=== PATIENT | male | born 1990 | race Caucasian/White ===

== ENCOUNTER 2019-10-14 01:09 | Inpatient (IN) | payer BC ==
--- NOTE | 2019-10-14 01:21 | EDM.PDOC ---
ED HPI GENERAL MEDICAL PROBLEM - General Chief Complaint: Drug or Alcohol Abuse Stated Complaint: [facility] Time Seen by Provider: 10/14/19 01:09 Source of Information: Reports: EMS, Police History Limitations: Reports: Other (Unresponsive) - History of Present Illness INITIAL COMMENTS - FREE TEXT/NARRATIVE: Mr. Ordonez is a 29-year-old man brought to the ED by paramedics after the police were called for the patient being found in a vehicle unresponsive. The police state that they contacted the patient's roommate, who told him that the patient had been drinking [place] Bocan[place] all day, then left their apartment at 18: 30. The person who called the police told him that they had seen the patient in his vehicle, apparently sleeping with the car running, around 20:30. When he was still there early this morning, they called the police. The police found the patient unresponsive in his vehicle with the engine running. They broke out a window in order to access him. They gave 3 doses of intranasal Narcan 4 mg each with minimal improvement in his cognition. EMS subsequently placed an IV and gave 2 additional milligrams IV. Upon arrival to the ED, the patient is tachycardic but otherwise hemodynamically stable. He is oxygenating at 97% on room air, but does not respond to noxious stimuli. Because the patient has not been to this ED before, we have no medical records on the patient, and therefore do not know of any past medical history. - Related Data Allergies Allergy/AdvReac Type Severity Reaction Status Date / Time No Known Allergies Allergy Verified 10/14/19 02:59 Home Meds: Home Meds . [Unable to Verify Home Med List] 10/14/19 [History] Past Medical History Endocrine/Metabolic History: Reports: Obesity/BMI 30+ ED ROS GENERAL - Review of Systems Review Of Systems: Unable To Obtain Reason Not Obtained: Patient unresponsive - Physical Exam Exam: See Below Exam Limited By: Physical Impairment General Appearance: WD/WN, No Apparent Distress, Obtunded Eye Exam: Bilateral Eye: Other (Pupils approx 8 mm diameter, sluggish, although the patient does try to squeeze his eyes shit to light) Ears: Normal External Exam, Normal Canal, Normal TMs Nose: Normal Inspection, Normal Mucosa, No Blood Throat/Mouth: Normal Inspection, Normal Lips, No Airway Compromise Head Exam: Atraumatic, Normocephalic Neck: Normal Inspection, Supple, Full Range of Motion Respiratory/Chest: No Respiratory Distress, Lungs Clear, Normal Breath Sounds, No Accessory Muscle Use Cardiovascular: Normal Peripheral Pulses, No Edema, No Gallop, No JVD, No Murmur , No Rub, Tachycardia (regular) GI/Abdominal: Normal Bowel Sounds, Soft, Non-Tender, No Organomegaly, No Distention, No Abnormal Bruit, No Mass (Male) Exam: Deferred Rectal (Males) Exam: Deferred Neuro Exam (Abbreviated): Unresponsive Back Exam: Normal Inspection, Full Range of Motion, NT Extremities: Normal Inspection, Normal Range of Motion, No Pedal Edema, Normal Capillary Refill Skin Exam: Warm, Dry, Intact, Normal Color, No Rash EKG INTERPRETATION EKG Date: 10/14/19 Time: 01:23 Rhythm: Other (Sinus tachycardia) Rate (Beats/Min): 111 [place]: Normal P-Wave: Present QRS: Normal ST-T: Depressed (ST depression in II and V3-V5, but no T wave inversions) QT: Prolonged (QTc 507 ms) Comparison: NA - No Prior EKG Course - Vital Signs Last Recorded V/S: Last Vital Signs Temp 36.1 C 10/14/19 01:13 Pulse 106 H 10/14/19 03:46 Resp 11 L 10/14/19 03:46 BP 98/55 L 10/14/19 03:46 Pulse Ox 91 L 10/14/19 03:46 - Orders/Labs/Meds Orders: Active Orders 24 hr Category Date Time Status EKG Documentation Completion [RC] STAT Care 10/14/19 01:18 Active Gastrointestinal Tube Mgmt [RC] ASDIRECTED Care 10/14/19 03:14 Active Chest 1V-Tube Placement Chk NC [CR] Stat Exams 10/14/19 04:25 Taken Head wo Cont [CT] Stat Exams 10/14/19 01:17 Taken CULTURE BLOOD [BC] Stat Lab 10/14/19 06:05 Received CULTURE BLOOD [BC] Stat Lab 10/14/19 06:25 Received Norepinephrine [Levophed] 4 mg Med 10/14/19 05:15 Active Dextrose 5% in Water 246 ml IV TITRATE Octreotide [SandoSTATIN] 500 mcg Med 10/14/19 02:00 Active Sodium Chloride 0.9% [Normal Saline] 499 ml IV Q10H Pantoprazole [ProTONIX IV] 80 mg Med 10/14/19 02:00 Active Sodium Chloride 0.9% [Normal Saline] 100 ml IV Q10H Blood Culture x2 Reflex Set [OM.PC] Stat Oth 10/14/19 05:57 Ordered Nasogastric Orogastric Tube Insertion [OM.PC] Routine Oth 10/14/19 03:13 Ordered Medication Orders Pantoprazole Sodium 80 mg/ (Sodium Chloride) 100 mls @ 10 mls/hr IV Q10H ASHISH Last Admin: 10/14/19 02:01 Dose: 8 mg/hr, 10 mls/hr Octreotide Acetate 500 mcg/ (Sodium Chloride) 500 mls @ 50 mls/hr IV Q10H ASHISH Last Admin: 10/14/19 02:25 Dose: 50 mcg/hr, 50 mls/hr Norepinephrine Bitartrate 4 mg (/ Dextrose/Water) 250 mls @ 75 mls/hr IV TITRATE ASHISH; Protocol Labs: Laboratory Tests 10/14/19 10/14/19 10/14/19 Range/Units 01:45 01:45 01:45 WBC 33.45 H (4.23-9.07) K/mm3 RBC 5.42 (4.63-6.08) M/mm3 Hgb 15.9 (13.7-17.5) gm/dl Hct 49.9 (40.1-51.0) % MCV 92.1 (79.0-92.2) fl MCH 29.3 (25.7-32.2) pg MCHC 31.9 L (32.2-35.5) g/dl RDW Std Deviation 45.2 H (35.1-43.9) fL Plt Count 178 (163-337) K/mm3 MPV 10.2 (9.4-12.3) fl Neutrophils % (Manual) 91 H (40-60) % Band Neutrophils % 0 (0-10) % Lymphocytes % (Manual) 6 L (20-40) % Atypical Lymphs % 0 % Monocytes % (Manual) 2 (2-10) % Eosinophils % (Manual) 1 (0.8-7.0) % Basophils % (Manual) 0 L (0.2-1.2) Platelet Estimate Adequate RBC Morph Comment Normal Sodium (136-145) mEq/L Potassium (3.5-5.1) mEq/L Chloride (98-107) mEq/L Carbon Dioxide (21-32) mEq/L Anion Gap (5-15) BUN (7-18) mg/dL Creatinine (0.7-1.3) mg/dL Est Cr Clr Drug Dosing Estimated GFR (MDRD) (>60) mL/min BUN/Creatinine Ratio (14-18) Glucose (74-106) mg/dL Serum Osmolality (280-300) mosm/kg Lactic Acid (0.4-2.0) mmol/L Calcium (8.5-10.1) mg/dL Magnesium 2.3 (1.8-2.4) mg/dl Total Bilirubin (0.2-1.0) mg/dL AST (15-37) U/L ALT (16-63) U/L Alkaline Phosphatase (46-116) U/L Total Protein (6.4-8.2) g/dl Albumin (3.4-5.0) g/dl Globulin gm/dL Albumin/Globulin Ratio (1-2) TSH 3rd Generation (0.358-3.74) uIU/mL Salicylates 1.5 L (2.8-20) mg/dL Urine Opiates Screen (YURAXL=937) Ur Buprenorphine Scrn (CUTOFF=10) Ur Oxycodone Screen (CPQ7RZ=060) Urine Methadone Screen (KAP3AB=647) Ur Propoxyphene Screen (HLMAHT=553) Acetaminophen (10-30) ug/mL Ur Barbiturates Screen (LFSMHL=380) Ur Tricyclics Screen (QDDGUI=995) Ur Phencyclidine Scrn (CUTOFF=25) Ur Amphetamine Screen (NTKRIO=524) U Methamphetamines Scrn (UYSTES=583) U Benzodiazepines Scrn (YETAKI=834) U Cocaine Metab Screen (ZAUBVF=261) U Marijuana (THC) Screen (CUTOFF=50) Ethyl Alcohol (0.00) gm% 10/14/19 10/14/19 10/14/19 Range/Units 01:45 02:10 03:48 WBC (4.23-9.07) K/mm3 RBC (4.63-6.08) M/mm3 Hgb (13.7-17.5) gm/dl Hct (40.1-51.0) % MCV (79.0-92.2) fl MCH (25.7-32.2) pg MCHC (32.2-35.5) g/dl RDW Std Deviation (35.1-43.9) fL Plt Count (163-337) K/mm3 MPV (9.4-12.3) fl Neutrophils % (Manual) (40-60) % Band Neutrophils % (0-10) % Lymphocytes % (Manual) (20-40) % Atypical Lymphs % % Monocytes % (Manual) (2-10) % Eosinophils % (Manual) (0.8-7.0) % Basophils % (Manual) (0.2-1.2) Platelet Estimate RBC Morph Comment Sodium 145 (136-145) mEq/L Potassium 3.8 (3.5-5.1) mEq/L Chloride 109 H (98-107) mEq/L Carbon Dioxide 19 L (21-32) mEq/L Anion Gap 20.8 H (5-15) BUN 15 (7-18) mg/dL Creatinine 1.7 H (0.7-1.3) mg/dL Est Cr Clr Drug Dosing TNP Estimated GFR (MDRD) 48 (>60) mL/min BUN/Creatinine Ratio 8.8 L (14-18) Glucose 125 H (74-106) mg/dL Serum Osmolality 345 H (280-300) mosm/kg Lactic Acid 3.9 H* (0.4-2.0) mmol/L Calcium 7.8 L (8.5-10.1) mg/dL Magnesium (1.8-2.4) mg/dl Total Bilirubin 0.3 (0.2-1.0) mg/dL AST 601 H (15-37) U/L ALT 620 H (16-63) U/L Alkaline Phosphatase 69 (46-116) U/L Total Protein 6.9 (6.4-8.2) g/dl Albumin 3.7 (3.4-5.0) g/dl Globulin 3.2 gm/dL Albumin/Globulin Ratio 1.2 (1-2) TSH 3rd Generation 0.879 (0.358-3.74) uIU/mL Salicylates (2.8-20) mg/dL Urine Opiates Screen (VMQXEO=027) Ur Buprenorphine Scrn (CUTOFF=10) Ur Oxycodone Screen (HSS1WG=755) Urine Methadone Screen (SBZ1SE=367) Ur Propoxyphene Screen (EUNLLA=436) Acetaminophen 0 L (10-30) ug/mL Ur Barbiturates Screen (ANLSME=239) Ur Tricyclics Screen (XAHMVB=097) Ur Phencyclidine Scrn (CUTOFF=25) Ur Amphetamine Screen (DAIMDN=868) U Methamphetamines Scrn (IPCBZP=045) U Benzodiazepines Scrn (IEGEAG=214) U Cocaine Metab Screen (AITRBX=218) U Marijuana (THC) Screen (CUTOFF=50) Ethyl Alcohol 0.11 (0.00) gm% 10/14/19 10/14/19 Range/Units 05:27 06:25 WBC (4.23-9.07) K/mm3 RBC (4.63-6.08) M/mm3 Hgb (13.7-17.5) gm/dl Hct (40.1-51.0) % MCV (79.0-92.2) fl MCH (25.7-32.2) pg MCHC (32.2-35.5) g/dl RDW Std Deviation (35.1-43.9) fL Plt Count (163-337) K/mm3 MPV (9.4-12.3) fl Neutrophils % (Manual) (40-60) % Band Neutrophils % (0-10) % Lymphocytes % (Manual) (20-40) % Atypical Lymphs % % Monocytes % (Manual) (2-10) % Eosinophils % (Manual) (0.8-7.0) % Basophils % (Manual) (0.2-1.2) Platelet Estimate RBC Morph Comment Sodium (136-145) mEq/L Potassium (3.5-5.1) mEq/L Chloride (98-107) mEq/L Carbon Dioxide (21-32) mEq/L Anion Gap (5-15) BUN (7-18) mg/dL Creatinine (0.7-1.3) mg/dL Est Cr Clr Drug Dosing Estimated GFR (MDRD) (>60) mL/min BUN/Creatinine Ratio (14-18) Glucose (74-106) mg/dL Serum Osmolality (280-300) mosm/kg Lactic Acid 3.1 H* (0.4-2.0) mmol/L Calcium (8.5-10.1) mg/dL Magnesium (1.8-2.4) mg/dl Total Bilirubin (0.2-1.0) mg/dL AST (15-37) U/L ALT (16-63) U/L Alkaline Phosphatase (46-116) U/L Total Protein (6.4-8.2) g/dl Albumin (3.4-5.0) g/dl Globulin gm/dL Albumin/Globulin Ratio (1-2) TSH 3rd Generation (0.358-3.74) uIU/mL Salicylates (2.8-20) mg/dL Urine Opiates Screen Negative (GCBETF=769) Ur Buprenorphine Scrn Negative (CUTOFF=10) Ur Oxycodone Screen Negative (ZJZ3NP=011) Urine Methadone Screen Negative (PMT4LZ=200) Ur Propoxyphene Screen Negative (WMIMKK=913) Acetaminophen (10-30) ug/mL Ur Barbiturates Screen Negative (UPMRBK=816) Ur Tricyclics Screen Negative (CNFVGW=563) Ur Phencyclidine Scrn Negative (CUTOFF=25) Ur Amphetamine Screen Negative (NPQJOT=637) U Methamphetamines Scrn Negative (ABDXEN=528) U Benzodiazepines Scrn Negative (TQIJGA=801) U Cocaine Metab Screen Negative (PBXHPJ=394) U Marijuana (THC) Screen Negative (CUTOFF=50) Ethyl Alcohol (0.00) gm% Meds: Medications Generic Name Dose Route Start Last Admin Trade Name Freq PRN Reason Stop Dose Admin Pantoprazole Sodium 80 mg/ 100 mls @ 10 mls/hr 10/14/19 02:00 10/14/19 02:01 Sodium Chloride IV 8 mg/hr Q10H ASHISH 10 mls/hr Administration 8 MG/HR Octreotide Acetate 500 mcg/ 500 mls @ 50 mls/hr 10/14/19 02:00 10/14/19 02:25 Sodium Chloride IV 50 mcg/hr Q10H ASHISH 50 mls/hr Administration 50 MCG/HR Norepinephrine Bitartrate 4 mg 250 mls @ 75 mls/hr 10/14/19 05:15 / Dextrose/Water IV TITRATE ASHISH Protocol 20 MCG/MIN Discontinued Medications Generic Name Dose Route Start Last Admin Trade Name Freq PRN Reason Stop Dose Admin Sodium Chloride 1,000 mls @ 150 mls/hr 10/14/19 01:30 Normal Saline IV ASDIRECTED ASHISH Sodium Chloride 1,000 mls @ 999 mls/hr 10/14/19 01:52 10/14/19 01:54 Normal Saline IV 10/14/19 02:52 999 mls/hr ONETIME ONE Administration Sodium Chloride 500 mls @ 999 mls/hr 10/14/19 03:01 10/14/19 03:06 Normal Saline IV 10/14/19 03:31 999 mls/hr .BOLUS ONE Administration Norepinephrine Bitartrate 4 mg 250 mls @ 37.5 mls/hr 10/14/19 03:15 10/14/19 04:56 / Dextrose/Water IV 10 mcg/min TITRATE ASHISH 37.5 mls/hr Administration Protocol 10 MCG/MIN Sodium Chloride Confirm 10/14/19 03:09 10/14/19 04:23 Normal Saline Administered 10/14/19 03:10 Not Given Dose 100 mls @ as directed .ROUTE .STK-MED ONE Sodium Chloride Confirm 10/14/19 03:12 10/14/19 04:56 Normal Saline Administered 10/14/19 03:13 Not Given Dose 250 mls @ as directed .ROUTE .STK-MED ONE Dextrose/Water Confirm 10/14/19 03:38 10/14/19 04:55 Dextrose 5% In Water Administered 10/14/19 03:39 Not Given Dose 500 mls @ as directed .ROUTE .STK-MED ONE Sodium Chloride 500 mls @ 1,000 mls/hr 10/14/19 03:45 Normal Saline IV 10/14/19 04:14 .BOLUS ONE Sodium Chloride 1,000 mls @ 999 mls/hr 10/14/19 05:02 10/14/19 06:03 Normal Saline IV 10/14/19 06:02 999 mls/hr ONETIME ONE Administration Levofloxacin/Dextrose 750 mg/ 150 mls @ 100 mls/hr 10/14/19 05:25 10/14/19 06 :48 Premix IV 10/14/19 06:54 100 mls/hr ONETIME STA Administration Lidocaine HCl Confirm 10/14/19 04:10 10/14/19 04:27 Xylocaine 2% Jelly Administered 10/14/19 04:11 10 ml Dose Administration 10 ml .ROUTE .STK-MED ONE Lidocaine HCl 10 ml 10/14/19 04:27 Xylocaine 2% Jelly MUCMEM 10/14/19 04:28 ONETIME ONE Norepinephrine Bitartrate Confirm 10/14/19 03:09 10/14/19 04:24 Levophed Administered 10/14/19 03:10 Not Given Dose 4 mg .ROUTE .STK-MED ONE Norepinephrine Bitartrate Confirm 10/14/19 03:37 10/14/19 04:57 Levophed Administered 10/14/19 03:38 Not Given Dose 4 mg .ROUTE .STK-MED ONE Ondansetron HCl 4 mg 10/14/19 02:52 10/14/19 04:57 Zofran Odt PO 10/14/19 02:53 Not Given ONETIME ONE Ondansetron HCl 4 mg 10/14/19 02:55 10/14/19 02:56 Zofran IVPUSH 10/14/19 02:56 4 mg ONETIME ONE Administration Ondansetron HCl Confirm 10/14/19 02:53 Zofran Administered 10/14/19 02:54 Dose 4 mg .ROUTE .STK-MED ONE Pantoprazole Sodium 80 mg 10/14/19 01:46 10/14/19 02:00 Protonix Iv IVPUSH 10/14/19 01:47 80 mg BOLUS ONE Administration - Re-Assessments/Exams Free Text/Narrative Re-Assessment/Exam: 10/14/19 01:20 By the history provided by the police, the patient is most likely suffering from significant alcohol intoxication, however, in order to rule out other causes, I have ordered a CT scan of the head along with blood work and a urine drug screen. 10/14/19 01:45 Notified by Ritu LOPEZ that the patient vomited a large amount of coffee-ground appearing emesis. She Hemoccult tested it, and it returned grossly positive. The patient now appears to be more awake, yawning and looking around. 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 I have switched the patient's IV fluid to a bolus, and ordered pantoprazole 80 mg IVP followed by 8 mg/h gtt, and octreotide 50 mcg followed by 50 mcg/h gtt. 10/14/19 03:15 Notified by Nathalia LOPEZ that the patient's blood pressure suddenly dropped down to 60/27. I ordered an IV fluid bolus and Levophed at 10 mcg/min. Case discussed with Dr. Bond at 03:10. He feels that it is unlikely, given the patient's age, that his blood pressure dropped due to hemorrhage. He recommended, however, that we place an NG tube, and if there is fresh blood, then I will contact him to come in. CT of the head without contrast is read by Eliseo as "No acute intracranial process." The patient's CBC is remarkable for a WBC count substantially elevated at 33.45 , but with 0% bandemia. The remainder of his CBC is unremarkable. His CMP is remarkable for a bicarbonate depressed at 20, with an anion gap elevated at 20.8. His BUN is normal at 15, however, his Cr is elevated at 1.7. His blood glucose is elevated at 125. His AST/ALT are elevated at 601/620, respectively. The remainder of his CMP is unremarkable. His magnesium level is within normal limits at 2.3. His TSH is within normal limits at 0.879. His acetaminophen level is 0. His salicylate level is within normal limits at 1.5. His EtOH level is elevated at 0.11. Urine has not yet been collected for his urine drug screen. In order to evaluate the patient's high anion gap metabolic acidosis, I will order a lactic acid, a serum osmole, and an arterial blood gas. We already have the benefit of knowing that his salicylate level is not significantly elevated and that he is not significantly hyperglycemic. 10/14/19 05:16 Post-NG tube portable chest x-ray is read by Eliseo as: 1. No acute findings. 2. NG tube the tip of which can be seen at the GE junction. This should be advanced into the stomach The patient's lactic acid level is elevated at 3.9. His serum osmolality is 345. Notified by the filling technician that we are unable to perform ABGs at this time , due to a shortage of supplies related to COVID-19. The NG tube is being advanced. The patient has an osmolar gap of 12.86. The elevation is most likely due to his elevated alcohol level. The patient tells me that he took a single 30 mg tablet of Oxycodone to treat body aches. He states that "It's been a rough week". He states that he has not done that previously. He states that it was not in an attempt to harm himself. He denies recent illness. The etiology of the patient's hypotension is not clear. His blood pressure improved when the NG tube was initially attempted to be passed, but it has since dropped again, and I have had to increase his Levophed to 20 mcg/min. Oxycodone and alcohol may have been why he was initially unresponsive, but they should not cause hypotension. As above, he has an elevated WBC count, but no left shift whatsoever, and without recent illness, I have no reason to suspect sepsis. Nevertheless, I will order 2 sets of blood cultures, a repeat lactic acid level, and 750 mg of IV Levaquin as broad-spectrum antibiotic coverage. 10/14/19 06:04 The patient's urine drug screen is negative. 10/14/19 07:18 Repeat lactic acid is down to 3.1. Case discussed with Dr. Chan. He accepted the patient for admission to the ICU. Departure - Departure Time of Disposition: 07:19 Disposition: Admitted As Inpatient 67 Condition: Serious Clinical Impression: Hypotension, Alcohol abuse, Alcohol intoxication, Lactic acid increased - Discharge Information *PRESCRIPTION DRUG MONITORING PROGRAM REVIEWED*: Not Applicable *COPY OF PRESCRIPTION DRUG MONITORING REPORT IN PATIENT GABRIEL: Not Applicable Referrals: PCP,None [Primary Care Provider] - Sepsis Event Note - Evaluation Sepsis Screening Result: No Definite Risk - Focused Exam Vital Signs: Vital Signs Temp Pulse Pulse Resp BP BP Pulse Ox 10/14/19 03:46 106 H 11 L 98/55 L 91 L 10/14/19 03:45 109 H 17 95 10/14/19 03:31 114 H 16 111/55 L 98 10/14/19 03:30 117 H 18 98 10/14/19 03:28 120 H 27 H 105/86 93 L 10/14/19 03:27 115 H 22 H 97 10/14/19 03:19 106 H 12 73 L 10/14/19 01:13 36.1 C 114 H 32 H 107/39 L 97 Date Exam was Performed: 10/14/19 Time Exam was Performed: 07:23 - My Orders Last 24 Hours: My Active Orders 10/14/19 01:17 Head wo Cont [CT] Stat 10/14/19 01:18 EKG Documentation Completion [RC] STAT 10/14/19 02:00 Octreotide [SandoSTATIN] 500 mcg Sodium Chloride 0.9% [Normal Saline] 499 ml IV Q10H Pantoprazole [ProTONIX IV] 80 mg Sodium Chloride 0.9% [Normal Saline] 100 ml IV Q10H 10/14/19 03:13 Nasogastric Orogastric Tube Insertion [OM.PC] Routine 10/14/19 03:14 Gastrointestinal Tube Mgmt [RC] ASDIRECTED 10/14/19 04:25 Chest 1V-Tube Placement Chk NC [CR] Stat 10/14/19 05:15 Norepinephrine [Levophed] 4 mg Dextrose 5% in Water 246 ml IV TITRATE 10/14/19 05:57 Blood Culture x2 Reflex Set [OM.PC] Stat 10/14/19 06:05 CULTURE BLOOD [BC] Stat 10/14/19 06:25 CULTURE BLOOD [BC] Stat - Assessment/Plan Last 24 Hours: My Active Orders 10/14/19 01:17 Head wo Cont [CT] Stat 10/14/19 01:18 EKG Documentation Completion [RC] STAT 10/14/19 02:00 Octreotide [SandoSTATIN] 500 mcg Sodium Chloride 0.9% [Normal Saline] 499 ml IV Q10H Pantoprazole [ProTONIX IV] 80 mg Sodium Chloride 0.9% [Normal Saline] 100 ml IV Q10H 10/14/19 03:13 Nasogastric Orogastric Tube Insertion [OM.PC] Routine 10/14/19 03:14 Gastrointestinal Tube Mgmt [RC] ASDIRECTED 10/14/19 04:25 Chest 1V-Tube Placement Chk NC [CR] Stat 10/14/19 05:15 Norepinephrine [Levophed] 4 mg Dextrose 5% in Water 246 ml IV TITRATE 10/14/19 05:57 Blood Culture x2 Reflex Set [OM.PC] Stat 10/14/19 06:05 CULTURE BLOOD [BC] Stat 10/14/19 06:25 CULTURE BLOOD [BC] Stat
[2019-10-14] MEDS ORDERED: Sodium Chloride 0.9% 1,000 ML IV SCH ×2 (01:30→07:30)
[2019-10-14] MEDS ORDERED: Pantoprazole 40 MG Vial IVPUSH ONE (01:46)
[2019-10-14] MEDS ORDERED: Sodium Chloride 0.9% 1,000 ML IV ONE ×2 (01:52→05:02)
[2019-10-14] MEDS: Pantoprazole 80 MG in Sodium Chloride 0.9% 100 ML IV SCH ×3 (02:01→22:10)
[2019-10-14] MEDS: Octreotide 500 MCG in Sodium Chloride 0.9% 499 ML IV SCH ×2 (02:25→20:16)
[2019-10-14 02:50] LABS: ACETAMINOPHEN 0 ug/mL (10-30)
[2019-10-14] MEDS ORDERED: Ondansetron 4 MG Tab.DIS PO ONE (02:52)
[2019-10-14] MEDS ORDERED: Ondansetron 4 MG/2 ML SDV ONE (02:53)
[2019-10-14] MEDS ORDERED: Ondansetron 4 MG/2 ML SDV IVPUSH ONE (02:55)
[2019-10-14] MEDS ORDERED: Sodium Chloride 0.9% 500 ML IV ONE ×2 (03:01→03:45)
[2019-10-14] MEDS ORDERED: Sodium Chloride 0.9% 100 ML ONE (03:09)
[2019-10-14] MEDS ORDERED: Norepinephrine 4 MG/4 ML SDV ONE ×2 (03:09→03:37)
[2019-10-14] MEDS ORDERED: Sodium Chloride 0.9% 250 ML ONE (03:12)
[2019-10-14] MEDS ORDERED: Norepinephrine 4 MG in Dextrose 5% in Water 246 ML IV SCH ×6 (03:15→09:15)
[2019-10-14] MEDS ORDERED: Dextrose 5% in Water 500 ML ONE (03:38)
[2019-10-14] MEDS ORDERED: Lidocaine 2% Jelly 10 ML Urojet ONE (04:10)
[2019-10-14] MEDS ORDERED: Lidocaine 2% Jelly 10 ML Urojet MUCMEM ONE (04:27)
[2019-10-14] MEDS ORDERED: Levofloxacin/Dextrose 5%-Water 750 MG in Premix Bag 1 BAG IV STA (05:25)
--- NOTE | 2019-10-14 08:31 | CR ---
Chest: Frontal view of the chest was obtained. Comparison: No prior chest imaging is available. Nasogastric tube is faintly visualized. Tip appears to be slightly below the gastroesophageal junction. Heart size and mediastinum are normal. Lungs are clear with no acute parenchymal change. Bony structures are grossly intact. Impression: 1. Faintly visualized nasogastric tube. Tip is felt to lie slightly past the gastroesophageal junction and should be advanced for more optimal positioning. 2. Nothing acute is seen on frontal chest x-ray. Diagnostic code #3 This report was dictated in MDT I agree with preliminary report from sarah, finalized on 10/14/19, 6:05 AM Central Daylight Time
--- NOTE | 2019-10-14 08:31 | CT ---
Head CT Technique: Multiple axial sections through the brain were obtained. Intravenous contrast was not utilized. Comparison: No prior intracranial imaging is available. Findings: Ventricles along with basal cisterns and sulci over the convexities are within normal limits for the patient's age. No abnormal parenchymal densities are seen. No evidence of intracranial hemorrhage. No midline shift or mass-effect is seen. Bone window settings were reviewed. No acute calvarial abnormality is appreciated. Visualized paranasal sinuses and visualized mastoid sinuses show nothing acute. Impression: 1. Nothing acute is appreciated on noncontrast head CT study. Diagnostic code #1 This report was dictated in MDT I agree with preliminary report from sarah, finalized on 10/14/19, 4:05 AM Central Daylight Time
[2019-10-14] MEDS ORDERED: Lidocaine 1% 10 ML MDV ONE (09:40)
[2019-10-14] MEDS ORDERED: Lidocaine 1% 10 ML MDV INJECT ONE (09:41)
--- NOTE | 2019-10-14 09:46 | CR ---
Chest: Portable view of the chest was obtained. Comparison: Previous chest x-ray performed earlier on the same day (4:07 AM). Heart size is enlarged which is most likely accentuated from portable technique. Right jugular line is seen. Tip lies within the superior vena cava. Nasogastric tube is seen with tip lying within the stomach. Lungs are clear with no acute parenchymal change. Bony structures are grossly intact. Impression: 1. Nothing acute is appreciated on portable chest x-ray. 2. Satisfactory position of tubes and catheters. Diagnostic code #2 Study was dictated in MDT
--- NOTE | 2019-10-14 10:38 | PCM.PRNOTE ---
- Free Text/Narrative Note: Procedure Note: Right radial arterial line placement Detailed Report: The right wrist was prepped and draped in sterile fashion. An ultrasound was used to localize the radial artery, and 1 cc lidocaine 1% without epinephrine was injected intradermally. A 20 G arterial catheter was then inserted into the artery on first pass under direct vision with the ultrasound machine. Bright red blood return was noted, and the guidewire was advanced through the catheter. The catheter was passed over the needle and the rest of the insertion apparatus removed. Bright red pulsatile blood was noted emanating from the catheter. The transducer was connected with good waveform noted on the monitor. The catheter was stitched in place with a single silk suture and a large tegaderm dressing was placed to help secure the catheter. The patient tolerated the procedure well. tK Bond MD General Surgery
--- NOTE | 2019-10-14 10:43 | PCM.PRNOTE ---
- Free Text/Narrative Note: Procedure Note: Central Line Placement Detailed Report: Dr. Irvin had started the procedure, and I came to assist with right internal jugular venous access as the patient was significantly dehydrated with collapsible veins. Dr. Irvin and I worked together to complete placement of the line. Using ultrasound, a large bore hollow needle was successfully inserted into the right IJ. Blood was aspirated, and the syringe was taken of the needle and a guidewire was passed through the needle toward the heart. The wire advanced with no resistance. No ectopy was noted. A small incision was made with the 11 blade at the insertion site of the wire. The needle was removed, and a dilator passed over the wire and through the skin and soft tissue. The dilator was taken off the wire and a triple lumen central venous catheter was put in place over the guidewire. All ports freddy back and flushed easily. The central line was then sucured in place with two silk sutures , and a sterile dressing was applied. The patient tolerated the procedure well, and a confirmatory chest x-ray was ordered after completion of the procedure to ensure proper placement. Kt Bond MD General Surgery
[2019-10-14] MEDS ORDERED: Ondansetron 4 MG/2 ML SDV IV PRN (15:24)
--- NOTE | 2019-10-14 15:30 | PCM.HP.2 ---
H&P History of Present Illness - General Date of Service: 10/14/19 Admit Problem/Dx: Admission Diagnosis/Problem Admission Diagnosis/Problem Gastric hemorrhage - History of Present Illness Initial Comments - Free Text/Narative: 29-year-old male who was found in his truck unresponsive this morning was brought to the emergency department. Patient had been drinking the night before with friends. He had been drinking [place] all day. His friend saw him sleeping in his running car around 2030 hrs. When he was still there in the morning they called the police. He was found to be unresponsive and they had to break the window to access him. They gave him 3 doses of intranasal Narcan with minimal improvement. EMS placed an IV and gave 2 additional milligrams of IV Narcan. When patient arrived in the emergency department he was tachycardic but otherwise hemodynamically stable and not hypothermic. He did not respond to noxious stimuli but his oxygen saturations were 97% on room air. Unfortunately secondary to shortage of ABG supplies due to COVID-19 the emergency department was unable to get an ABG. Patient then vomited a large amount of coffee-ground emesis in the emergency department and it tested grossly positive for Hemoccult. Patient was then treated like a variceal bleed and started on octreotide and pantoprazole. Patient was hypotensive and received IV fluids. NG tube was placed and no significant lele blood was found decreasing the likelihood of variceal bleeding. Blood pressure did come up while placing the NG tube, but he did drop again. He was given 3 L of saline and started on Levophed. His Levophed was titrated up to 20. Head CT was performed which was negative for acute intracranial process. WBC was 33.4 with 0% bandemia. Patient became more awake as the morning wore on. He was then able to give somewhat of a history and stated that he took a single 30 mg tablet of oxycodone to treat body aches. Patient states that it was his friends and his friend gave him the tablet. Urine drug screen was negative for oxycodone and opiates. Then it was decided to transfer the patient to the ICU for hypotension, alcohol abuse and intoxication, and lactic acidosis. - Related Data Allergies/Adverse Reactions: Allergies Allergy/AdvReac Type Severity Reaction Status Date / Time No Known Allergies Allergy Verified 10/14/19 15:58 Home Medications: Home Meds . [No Known Home Meds] 10/14/19 [History] Past Medical History - Past Health History Medical/Surgical History: Denies Medical/Surgical History Endocrine/Metabolic History: Reports: Obesity/BMI 30+ Social & Family History - Family History Family Medical History: Unobtainable - Tobacco Use Smoking Status *Q: Unknown Ever Smoked Second Hand Smoke Exposure: No H&P Review of Systems - Review of Systems: Review Of Systems: Comprehensive ROS is negative, except as noted in HPI. Exam - Exam Exam: See Below - Vital Signs Vital Signs: Last Vital Signs Temp 98.1 F 10/14/19 14:55 Pulse 91 10/14/19 14:55 Resp 13 10/14/19 14:55 BP 123/65 10/14/19 14:55 Pulse Ox 95 10/14/19 14:55 Weight: 280 lb - Exam General: Alert, Oriented, 4 HEENT: Conjunctiva Clear, EACs Clear, EOMI, Hearing Intact, Mucosa Moist & [place] , Posterior Pharynx Clear Neck: Supple, Trachea Midline, 2 Lungs: Clear to Auscultation, Normal Respiratory Effort Cardiovascular: Regular Rate, Regular Rhythm GI/Abdominal Exam: Normal Bowel Sounds, Soft, Non-Tender, No Organomegaly, No Distention, No Abnormal Bruit, No Mass Extremities: Normal Inspection, Normal Range of Motion, Non-Tender, No Pedal Edema, Normal Capillary Refill Skin: Warm, Dry, Intact Neuro Extensive - Mental Status: Alert, Oriented x3, Normal Mood/Affect, Normal Cognition Neuro Extensive - Motor, Sensory, Reflexes: CN II-XII Intact Psychiatric: Alert, Normal Affect, Normal Mood - Patient Data Lab Results Last 24 hrs: Laboratory Results - last 24 hr 10/14/19 10/14/19 10/14/19 Range/Units 01:45 01:45 01:45 WBC 33.45 H (4.23-9.07) K/mm3 RBC 5.42 (4.63-6.08) M/mm3 Hgb 15.9 (13.7-17.5) gm/dl Hct 49.9 (40.1-51.0) % MCV 92.1 (79.0-92.2) fl MCH 29.3 (25.7-32.2) pg MCHC 31.9 L (32.2-35.5) g/dl RDW Std Deviation 45.2 H (35.1-43.9) fL Plt Count 178 (163-337) K/mm3 MPV 10.2 (9.4-12.3) fl Neutrophils % (Manual) 91 H (40-60) % Band Neutrophils % 0 (0-10) % Lymphocytes % (Manual) 6 L (20-40) % Atypical Lymphs % 0 % Monocytes % (Manual) 2 (2-10) % Eosinophils % (Manual) 1 (0.8-7.0) % Basophils % (Manual) 0 L (0.2-1.2) Platelet Estimate Adequate RBC Morph Comment Normal Sodium (136-145) mEq/L Potassium (3.5-5.1) mEq/L Chloride (98-107) mEq/L Carbon Dioxide (21-32) mEq/L Anion Gap (5-15) BUN (7-18) mg/dL Creatinine (0.7-1.3) mg/dL Est Cr Clr Drug Dosing Estimated GFR (MDRD) (>60) mL/min BUN/Creatinine Ratio (14-18) Glucose (74-106) mg/dL Serum Osmolality (280-300) mosm/kg Lactic Acid (0.4-2.0) mmol/L Calcium (8.5-10.1) mg/dL Magnesium 2.3 (1.8-2.4) mg/dl Total Bilirubin (0.2-1.0) mg/dL AST (15-37) U/L ALT (16-63) U/L Alkaline Phosphatase (46-116) U/L Total Protein (6.4-8.2) g/dl Albumin (3.4-5.0) g/dl Globulin gm/dL Albumin/Globulin Ratio (1-2) TSH 3rd Generation (0.358-3.74) uIU/mL Salicylates 1.5 L (2.8-20) mg/dL Urine Opiates Screen (IGCREH=316) Ur Buprenorphine Scrn (CUTOFF=10) Ur Oxycodone Screen (DCS7XZ=759) Urine Methadone Screen (EBS1FT=688) Ur Propoxyphene Screen (QWCCTE=987) Acetaminophen (10-30) ug/mL Ur Barbiturates Screen (DEGMKT=677) Ur Tricyclics Screen (FUSRHR=466) Ur Phencyclidine Scrn (CUTOFF=25) Ur Amphetamine Screen (KASLAD=155) U Methamphetamines Scrn (BCSUFW=717) U Benzodiazepines Scrn (PNERDI=358) U Cocaine Metab Screen (DDCFAV=841) U Marijuana (THC) Screen (CUTOFF=50) Ethyl Alcohol (0.00) gm% 10/14/19 10/14/19 10/14/19 Range/Units 01:45 02:10 03:48 WBC (4.23-9.07) K/mm3 RBC (4.63-6.08) M/mm3 Hgb (13.7-17.5) gm/dl Hct (40.1-51.0) % MCV (79.0-92.2) fl MCH (25.7-32.2) pg MCHC (32.2-35.5) g/dl RDW Std Deviation (35.1-43.9) fL Plt Count (163-337) K/mm3 MPV (9.4-12.3) fl Neutrophils % (Manual) (40-60) % Band Neutrophils % (0-10) % Lymphocytes % (Manual) (20-40) % Atypical Lymphs % % Monocytes % (Manual) (2-10) % Eosinophils % (Manual) (0.8-7.0) % Basophils % (Manual) (0.2-1.2) Platelet Estimate RBC Morph Comment Sodium 145 (136-145) mEq/L Potassium 3.8 (3.5-5.1) mEq/L Chloride 109 H (98-107) mEq/L Carbon Dioxide 19 L (21-32) mEq/L Anion Gap 20.8 H (5-15) BUN 15 (7-18) mg/dL Creatinine 1.7 H (0.7-1.3) mg/dL Est Cr Clr Drug Dosing TNP Estimated GFR (MDRD) 48 (>60) mL/min BUN/Creatinine Ratio 8.8 L (14-18) Glucose 125 H (74-106) mg/dL Serum Osmolality 345 H (280-300) mosm/kg Lactic Acid 3.9 H* (0.4-2.0) mmol/L Calcium 7.8 L (8.5-10.1) mg/dL Magnesium (1.8-2.4) mg/dl Total Bilirubin 0.3 (0.2-1.0) mg/dL AST 601 H (15-37) U/L ALT 620 H (16-63) U/L Alkaline Phosphatase 69 (46-116) U/L Total Protein 6.9 (6.4-8.2) g/dl Albumin 3.7 (3.4-5.0) g/dl Globulin 3.2 gm/dL Albumin/Globulin Ratio 1.2 (1-2) TSH 3rd Generation 0.879 (0.358-3.74) uIU/mL Salicylates (2.8-20) mg/dL Urine Opiates Screen (KVEJIS=736) Ur Buprenorphine Scrn (CUTOFF=10) Ur Oxycodone Screen (VYB7SB=449) Urine Methadone Screen (YFQ5FV=362) Ur Propoxyphene Screen (JLSRXX=965) Acetaminophen 0 L (10-30) ug/mL Ur Barbiturates Screen (XIQWSJ=542) Ur Tricyclics Screen (CVZJEH=017) Ur Phencyclidine Scrn (CUTOFF=25) Ur Amphetamine Screen (KRFCYV=280) U Methamphetamines Scrn (VKIUPN=627) U Benzodiazepines Scrn (ZFCKUF=552) U Cocaine Metab Screen (MAOWRW=176) U Marijuana (THC) Screen (CUTOFF=50) Ethyl Alcohol 0.11 (0.00) gm% 10/14/19 10/14/19 10/14/19 Range/Units 05:27 06:25 10:22 WBC (4.23-9.07) K/mm3 RBC (4.63-6.08) M/mm3 Hgb (13.7-17.5) gm/dl Hct (40.1-51.0) % MCV (79.0-92.2) fl MCH (25.7-32.2) pg MCHC (32.2-35.5) g/dl RDW Std Deviation (35.1-43.9) fL Plt Count (163-337) K/mm3 MPV (9.4-12.3) fl Neutrophils % (Manual) (40-60) % Band Neutrophils % (0-10) % Lymphocytes % (Manual) (20-40) % Atypical Lymphs % % Monocytes % (Manual) (2-10) % Eosinophils % (Manual) (0.8-7.0) % Basophils % (Manual) (0.2-1.2) Platelet Estimate RBC Morph Comment Sodium (136-145) mEq/L Potassium (3.5-5.1) mEq/L Chloride (98-107) mEq/L Carbon Dioxide (21-32) mEq/L Anion Gap (5-15) BUN (7-18) mg/dL Creatinine (0.7-1.3) mg/dL Est Cr Clr Drug Dosing Estimated GFR (MDRD) (>60) mL/min BUN/Creatinine Ratio (14-18) Glucose (74-106) mg/dL Serum Osmolality (280-300) mosm/kg Lactic Acid 3.1 H* 1.4 (0.4-2.0) mmol/L Calcium (8.5-10.1) mg/dL Magnesium (1.8-2.4) mg/dl Total Bilirubin (0.2-1.0) mg/dL AST (15-37) U/L ALT (16-63) U/L Alkaline Phosphatase (46-116) U/L Total Protein (6.4-8.2) g/dl Albumin (3.4-5.0) g/dl Globulin gm/dL Albumin/Globulin Ratio (1-2) TSH 3rd Generation (0.358-3.74) uIU/mL Salicylates (2.8-20) mg/dL Urine Opiates Screen Negative (XKMGCG=742) Ur Buprenorphine Scrn Negative (CUTOFF=10) Ur Oxycodone Screen Negative (HSE6PV=982) Urine Methadone Screen Negative (NNA4EP=323) Ur Propoxyphene Screen Negative (QOZAKK=781) Acetaminophen (10-30) ug/mL Ur Barbiturates Screen Negative (QBRAJL=389) Ur Tricyclics Screen Negative (GFHBPM=079) Ur Phencyclidine Scrn Negative (CUTOFF=25) Ur Amphetamine Screen Negative (BSCLKZ=014) U Methamphetamines Scrn Negative (NSEXKG=900) U Benzodiazepines Scrn Negative (VWNPLK=383) U Cocaine Metab Screen Negative (HUKXRL=094) U Marijuana (THC) Screen Negative (CUTOFF=50) Ethyl Alcohol (0.00) gm% Result Diagrams: 10/14/19 15:40 10/14/19 15:40 EKG INTERPRETATION EKG Date: 10/14/19 Time: 01:23 Rhythm: Other (Sinus tachycardia) Rate (Beats/Min): 111 [place]: Normal P-Wave: Present QRS: Normal ST-T: Depressed (ST depression in 2, V3 through V5,) QT: Prolonged (QTC 507 ms) Comparison: NA - No Prior EKG Sepsis Event Note - Evaluation Sepsis Screening Result: No Definite Risk - Focused Exam Vital Signs: Vital Signs Temp Pulse Pulse Resp BP BP Pulse Ox 10/14/19 14:55 98.1 F 91 13 123/65 95 10/14/19 03:46 106 H 11 L 98/55 L 91 L 10/14/19 03:45 109 H 17 95 10/14/19 03:31 114 H 16 111/55 L 98 10/14/19 03:30 117 H 18 98 Date Exam was Performed: 10/14/19 Time Exam was Performed: 18:23 Problem List Initiated/Reviewed/Updated: Yes Orders Last 24hrs: Active Orders 24 hr Category Date Time Status Patient Status [ADT] Routine ADT 10/14/19 14:30 Active EKG Documentation Completion [RC] STAT Care 10/14/19 01:18 Active Gastrointestinal Tube Mgmt [RC] ASDIRECTED Care 10/14/19 03:14 Active Oxygen Therapy [RC] PRN Care 10/14/19 15:24 Ordered Up With Assistance [RC] ASDIRECTED Care 10/14/19 15:24 Ordered VTE/DVT Education [RC] PER UNIT ROUTINE Care 10/14/19 15:24 Ordered Vital Signs [RC] Q4H Care 10/14/19 15:24 Ordered NPO [Nothing Per Oral Diet] [DIET] Diet 10/14/19 Dinner Ordered CBC WITH AUTO DIFF [HEME] AM Lab 10/15/19 05:11 Ordered CBC WITH AUTO DIFF [HEME] Stat Lab 10/14/19 15:28 Ordered COMPREHENSIVE METABOLIC PN,CMP [CHEM] AM Lab 10/15/19 05:11 Ordered COMPREHENSIVE METABOLIC PN,CMP [CHEM] Stat Lab 10/14/19 15:28 Ordered CULTURE BLOOD [BC] Stat Lab 10/14/19 06:05 Received CULTURE BLOOD [BC] Stat Lab 10/14/19 06:25 Received INR,PT,PROTHROMBIN TIME [COAG] AM Lab 10/15/19 05:11 Ordered MAGNESIUM [CHEM] AM Lab 10/15/19 05:11 Ordered PTT,PARTIAL THROMBOPLSTIN TIME [COAG] AM Lab 10/15/19 05:11 Ordered Norepinephrine [Levophed] 4 mg Med 10/14/19 05:15 Active Dextrose 5% in Water 246 ml IV TITRATE Norepinephrine [Levophed] 4 mg Med 10/14/19 09:15 Active Dextrose 5% in Water 246 ml IV TITRATE Octreotide [SandoSTATIN] 500 mcg Med 10/14/19 02:00 Active Sodium Chloride 0.9% [Normal Saline] 499 ml IV Q10H Ondansetron [Zofran] Med 10/14/19 15:24 Ordered 4 mg IV Q4H PRN Pantoprazole [ProTONIX IV] 80 mg Med 10/14/19 02:00 Active Sodium Chloride 0.9% [Normal Saline] 100 ml IV Q10H Sodium Chloride 0.9% [Normal Saline] 1,000 ml Med 10/14/19 07:30 Active IV ASDIRECTED Blood Culture x2 Reflex Set [OM.PC] Stat Oth 10/14/19 05:57 Ordered Nasogastric Orogastric Tube Insertion [OM.PC] Routine Oth 10/14/19 03:13 Ordered Resuscitation Status Routine Resus Stat 10/14/19 15:24 Ordered Medication Orders Pantoprazole Sodium 80 mg/ (Sodium Chloride) 100 mls @ 10 mls/hr IV Q10H ASHISH Last Admin: 10/14/19 12:46 Dose: 8 mg/hr, 10 mls/hr Infusion: 10/14/19 12:01 Dose: 8 mg/hr, 10 mls/hr Admin: 10/14/19 02:01 Dose: 8 mg/hr, 10 mls/hr Octreotide Acetate 500 mcg/ (Sodium Chloride) 500 mls @ 50 mls/hr IV Q10H ASHISH Last Admin: 10/14/19 02:25 Dose: 50 mcg/hr, 50 mls/hr Norepinephrine Bitartrate 4 mg (/ Dextrose/Water) 250 mls @ 75 mls/hr IV TITRATE ASHISH; Protocol Sodium Chloride (Normal Saline) 1,000 mls @ 150 mls/hr IV ASDIRECTED ASHISH Last Admin: 10/14/19 07:32 Dose: 150 mls/hr Norepinephrine Bitartrate 4 mg (/ Dextrose/Water) 250 mls @ 56.25 mls/hr IV TITRATE ASHISH; Protocol Last Admin: 10/14/19 09:30 Dose: 15 mcg/min, 56.25 mls/hr Ondansetron HCl (Zofran) 4 mg IV Q4H PRN PRN Reason: Nausea/Vomiting Assessment/Plan Comment:: Assessment 29-year-old male found unresponsive by police in his vehicle with upper GI bleed , hypovolemia, hypotension requiring vasopressors * Patient drank a large amount of alcohol last night and took what he thought was on oxycodone. * Patient's urine drug screen was negative for oxycodone and opiates * It is possible patient was given another medication other than oxycodone that could be contributing to his hypotension * Patient is now awake and oriented but continues to require high doses of Levophed. * 3 L normal saline bolus given in ED +150 mL an hour. * Central line and art line placed in emergency department Upper GI bleed * Hematemesis in the emergency department * Initial hemoglobin 15.9, but likely spuriously elevated secondary to dehydration * Started on octreotide and Protonix drip * Dr. Bond was consulted by emergency department Acute alcohol intoxication * EtOH 0.11 Lactic acidosis * No source of infection, therefore no sepsis * Likely secondary to hypovolemia and alcohol * Resolved with IV fluids in the emergency room * Given levofloxacin in the emergency room * Blood cultures done in the emergency room Significant leukocytosis * WBC 33.45 with 0% bandemia * Afebrile * Negative chest x-ray * No source of infection * Likely demarcation secondary to stress Elevated LFTs with normal bilirubin * AST 601, ALT 620, Total bilirubin 0.3, albumin 3.7 * Likely secondary to acute alcohol intake Hypocalcemia * Calcium 7.8 * Likely secondary to acid base imbalance. * Unfortunately unable to get pH initially. * Differential includes parathyroid hormone disease, drugs, vitamin D deficiency , sepsis, acute respiratory alkalosis, acute severe illness as cause of hypocalcemia Plan * Admit to ICU * Titrate Levophed to keep map above 65 * Trend hemoglobin * N.p.o. * Recheck CMP, CBC, and magnesium * If calcium continues to be low in the morning will do further work-up to include vitamin D and PTH * Finish bag of octreotide and stop. It is unlikely that he has varices * Continue Protonix drip * NG tube removed in emergency department. * Switch IV fluids to D5 half-normal saline * CIWAA protocol with Ativan * Continue Levaquin until negative blood cultures at 48 hours * consulting services project manager and case management consult * VTE prophylaxis not indicated * CODE STATUS: Full code * Length of stay likely 2 to 3 days. - Mortality Measure Prognosis:: Good
[2019-10-14] MEDS: Folic Acid 50 MG/10 ML MDV IV SCH (16:38)
[2019-10-14] MEDS: Thiamine 200 MG/2 ML MDV IVPUSH SCH (16:40)
[2019-10-14] MEDS: Dextrose 5%-0.45% NaCl 1,000 ML IV SCH (16:46)
[2019-10-14] MEDS ORDERED: LORazepam 2 MG/ML SDV IVPUSH PRN (19:55)
[2019-10-15] MEDS: Dextrose 5%-0.45% NaCl 1,000 ML IV SCH ×2 (00:51→08:42)
[2019-10-15] MEDS: Levofloxacin/Dextrose 5%-Water 750 MG in Premix Bag 1 BAG IV SCH (06:24)
[2019-10-15] MEDS: Pantoprazole 80 MG in Sodium Chloride 0.9% 100 ML IV SCH ×2 (08:23→20:03)
[2019-10-15] MEDS: Thiamine 200 MG/2 ML MDV IVPUSH SCH (08:25)
[2019-10-15] MEDS ORDERED: Magnesium Sulfate/Water 2 GM in Premix Bag 1 BAG IV ONE (08:55)
[2019-10-15] MEDS ORDERED: D5 1/2 NS w/ 20 mEq/L KCl 1,000 ML IV SCH (09:00)
[2019-10-15] MEDS: Folic Acid 50 MG/10 ML MDV IV SCH (09:41)
--- NOTE | 2019-10-15 15:46 | PCM.PN ---
- General Info Date of Service: 10/15/19 Admission Dx/Problem (Free Text): Admission Diagnosis/Problem Admission Diagnosis/Problem Gastric hemorrhage Subjective Update: Patient is feeling much better. Blood pressure is been stable. No hematemesis nor black tarry stools. He has required approximately 1 L nasal cannula when sleeping. - Review of Systems General: Reports: No Symptoms HEENT: Reports: No Symptoms Pulmonary: Reports: No Symptoms Cardiovascular: Reports: No Symptoms Gastrointestinal: Reports: No Symptoms Genitourinary: Reports: No Symptoms Musculoskeletal: Reports: No Symptoms Neurological: Reports: No Symptoms - Patient Data Vitals - Most Recent: Last Vital Signs Temp 97.7 F 10/15/19 12:00 Pulse 88 10/15/19 12:00 Resp 16 10/15/19 12:00 BP 142/91 H 10/15/19 12:00 Pulse Ox 96 10/15/19 12:00 Weight - Most Recent: 301 lb 1.6 oz I&O - Last 24 Hours: Intake & Output 10/15/19 10/15/19 10/15/19 06:59 14:59 22:59 Intake Total 1334 Output Total 1000 980 Balance 1334 -1000 -980 Lab Results Last 24 Hours: Laboratory Results - last 24 hr 10/14/19 10/14/19 10/14/19 Range/Units 15:40 15:40 21:24 WBC 14.97 H (4.23-9.07) K/mm3 RBC 4.25 L (4.63-6.08) M/mm3 Hgb 12.4 L D 12.4 L (13.7-17.5) gm/dl Hct 39.5 L 39.9 L (40.1-51.0) % MCV 92.9 H (79.0-92.2) fl MCH 29.2 (25.7-32.2) pg MCHC 31.4 L (32.2-35.5) g/dl RDW Std Deviation 45.6 H (35.1-43.9) fL Plt Count 184 (163-337) K/mm3 MPV 10.0 (9.4-12.3) fl Neut % (Auto) 76.9 H (34.0-67.9) % Lymph % (Auto) 13.5 L (21.8-53.1) % [place] % (Auto) 9.0 (5.3-12.2) % Eos % (Auto) 0.1 L (0.8-7.0) Baso % (Auto) 0.1 (0.1-1.2) % Neut # (Auto) 11.52 H (1.78-5.38) K/mm3 Lymph # (Auto) 2.02 (1.32-3.57) K/mm3 [place] # (Auto) 1.35 H (0.30-0.82) K/mm3 Eos # (Auto) 0.01 L (0.04-0.54) K/mm3 Baso # (Auto) 0.01 (0.01-0.08) K/mm3 PT (9.7-12.0) SECONDS INR APTT (22-31) SECONDS Sodium 146 H (136-145) mEq/L Potassium 4.1 (3.5-5.1) mEq/L Chloride 113 H (98-107) mEq/L Carbon Dioxide 22 (21-32) mEq/L Anion Gap 15.1 H (5-15) BUN 13 (7-18) mg/dL Creatinine 1.1 (0.7-1.3) mg/dL Est Cr Clr Drug Dosing 119.49 mL/min Estimated GFR (MDRD) > 60 (>60) mL/min BUN/Creatinine Ratio 11.8 L (14-18) Glucose 109 H (74-106) mg/dL Calcium 7.0 L (8.5-10.1) mg/dL Magnesium (1.8-2.4) mg/dl Total Bilirubin 0.5 (0.2-1.0) mg/dL AST 1167 H (15-37) U/L ALT 1094 H (16-63) U/L Alkaline Phosphatase 51 (46-116) U/L Total Protein 5.5 L (6.4-8.2) g/dl Albumin 3.0 L (3.4-5.0) g/dl Globulin 2.5 gm/dL Albumin/Globulin Ratio 1.2 (1-2) 10/15/19 10/15/19 10/15/19 Range/Units 04:14 04:14 05:11 WBC 14.89 H (4.23-9.07) K/mm3 RBC 4.06 L (4.63-6.08) M/mm3 Hgb 11.8 L (13.7-17.5) gm/dl Hct 38.0 L (40.1-51.0) % MCV 93.6 H (79.0-92.2) fl MCH 29.1 (25.7-32.2) pg MCHC 31.1 L (32.2-35.5) g/dl RDW Std Deviation 45.3 H (35.1-43.9) fL Plt Count 153 L (163-337) K/mm3 MPV 10.7 (9.4-12.3) fl Neut % (Auto) 70.8 H (34.0-67.9) % Lymph % (Auto) 21.4 L (21.8-53.1) % [place] % (Auto) 6.2 (5.3-12.2) % Eos % (Auto) 1.1 (0.8-7.0) Baso % (Auto) 0.2 (0.1-1.2) % Neut # (Auto) 10.54 H (1.78-5.38) K/mm3 Lymph # (Auto) 3.18 (1.32-3.57) K/mm3 [place] # (Auto) 0.93 H (0.30-0.82) K/mm3 Eos # (Auto) 0.16 (0.04-0.54) K/mm3 Baso # (Auto) 0.03 (0.01-0.08) K/mm3 PT 11.7 (9.7-12.0) SECONDS INR 1.08 APTT 24 (22-31) SECONDS Sodium 141 (136-145) mEq/L Potassium 3.7 (3.5-5.1) mEq/L Chloride 107 (98-107) mEq/L Carbon Dioxide 28 (21-32) mEq/L Anion Gap 9.7 (5-15) BUN 16 (7-18) mg/dL Creatinine 1.0 (0.7-1.3) mg/dL Est Cr Clr Drug Dosing 131.44 mL/min Estimated GFR (MDRD) > 60 (>60) mL/min BUN/Creatinine Ratio 16.0 (14-18) Glucose 104 (74-106) mg/dL Calcium 7.9 L (8.5-10.1) mg/dL Magnesium 1.8 (1.8-2.4) mg/dl Total Bilirubin 0.5 (0.2-1.0) mg/dL AST 848 H (15-37) U/L ALT 974 H (16-63) U/L Alkaline Phosphatase 45 L (46-116) U/L Total Protein 5.5 L (6.4-8.2) g/dl Albumin 2.9 L (3.4-5.0) g/dl Globulin 2.6 gm/dL Albumin/Globulin Ratio 1.1 (1-2) 10/15/19 Range/Units 12:00 WBC (4.23-9.07) K/mm3 RBC (4.63-6.08) M/mm3 Hgb 12.3 L (13.7-17.5) gm/dl Hct (40.1-51.0) % MCV (79.0-92.2) fl MCH (25.7-32.2) pg MCHC (32.2-35.5) g/dl RDW Std Deviation (35.1-43.9) fL Plt Count (163-337) K/mm3 MPV (9.4-12.3) fl Neut % (Auto) (34.0-67.9) % Lymph % (Auto) (21.8-53.1) % [place] % (Auto) (5.3-12.2) % Eos % (Auto) (0.8-7.0) Baso % (Auto) (0.1-1.2) % Neut # (Auto) (1.78-5.38) K/mm3 Lymph # (Auto) (1.32-3.57) K/mm3 [place] # (Auto) (0.30-0.82) K/mm3 Eos # (Auto) (0.04-0.54) K/mm3 Baso # (Auto) (0.01-0.08) K/mm3 PT (9.7-12.0) SECONDS INR APTT (22-31) SECONDS Sodium (136-145) mEq/L Potassium (3.5-5.1) mEq/L Chloride (98-107) mEq/L Carbon Dioxide (21-32) mEq/L Anion Gap (5-15) BUN (7-18) mg/dL Creatinine (0.7-1.3) mg/dL Est Cr Clr Drug Dosing mL/min Estimated GFR (MDRD) (>60) mL/min BUN/Creatinine Ratio (14-18) Glucose (74-106) mg/dL Calcium (8.5-10.1) mg/dL Magnesium (1.8-2.4) mg/dl Total Bilirubin (0.2-1.0) mg/dL AST (15-37) U/L ALT (16-63) U/L Alkaline Phosphatase (46-116) U/L Total Protein (6.4-8.2) g/dl Albumin (3.4-5.0) g/dl Globulin gm/dL Albumin/Globulin Ratio (1-2) Festus Results Last 24 Hours: Microbiology 10/14/19 06:05 Aerobic Blood Culture - Preliminary Blood - Venous NO GROWTH AFTER 1 DAY Anaerobic Blood Culture - Final 10/14/19 06:25 Aerobic Blood Culture - Preliminary Blood - Venous - Lab Draw NO GROWTH AFTER 1 DAY Anaerobic Blood Culture - Preliminary NO GROWTH AFTER 1 DAY Med Orders - Current: Current Medications Folic Acid (Folic Acid) 1 mg IV DAILY [facility] Last Admin: 10/15/19 09:41 Dose: 1 mg Pantoprazole Sodium 80 mg/ (Sodium Chloride) 100 mls @ 10 mls/hr IV Q10H [facility] Last Admin: 10/15/19 08:23 Dose: 8 mg/hr, 10 mls/hr Levofloxacin/Dextrose 750 mg/ (Premix) 150 mls @ 100 mls/hr IV Q24H [facility] Last Admin: 10/15/19 06:24 Dose: 100 mls/hr Potassium Chloride/Dextrose/Sod Cl (D5 1/2 Ns W/ 20 Meq/L Kcl) 1,000 mls @ 125 mls/hr IV ASDIRECTED [facility] Last Admin: 10/15/19 10:36 Dose: 125 mls/hr Lorazepam (Ativan) 0 mg IVPUSH Q1H PRN; Protocol PRN Reason: Withdrawal Symptoms Ondansetron HCl (Zofran) 4 mg IV Q4H PRN PRN Reason: Nausea/Vomiting Thiamine HCl (Vitamin B-1) 100 mg IVPUSH DAILY [facility] Stop: 10/16/19 09:01 Last Admin: 10/15/19 08:25 Dose: 100 mg Discontinued Medications Sodium Chloride (Normal Saline) 1,000 mls @ 150 mls/hr IV ASDIRECTED [facility] Sodium Chloride (Normal Saline) 1,000 mls @ 999 mls/hr IV ONETIME ONE Stop: 10/14/19 02:52 Last Admin: 10/14/19 01:54 Dose: 999 mls/hr Octreotide Acetate 500 mcg/ (Sodium Chloride) 500 mls @ 50 mls/hr IV Q10H [facility] Last Admin: 10/14/19 20:16 Dose: Not Given Sodium Chloride (Normal Saline) 500 mls @ 999 mls/hr IV .BOLUS ONE Stop: 10/14/19 03:31 Last Admin: 10/14/19 03:06 Dose: 999 mls/hr Norepinephrine Bitartrate 4 mg (/ Dextrose/Water) 250 mls @ 37.5 mls/hr IV TITRATE [facility]; Protocol Last Admin: 10/14/19 04:56 Dose: 10 mcg/min, 37.5 mls/hr Sodium Chloride (Normal Saline) Confirm Administered Dose 100 mls @ as directed .ROUTE .[facility]-MED ONE Stop: 10/14/19 03:10 Last Admin: 10/14/19 04:23 Dose: Not Given Sodium Chloride (Normal Saline) Confirm Administered Dose 250 mls @ as directed .ROUTE .[facility]-MED ONE Stop: 10/14/19 03:13 Last Admin: 10/14/19 04:56 Dose: Not Given Dextrose/Water (Dextrose 5% In Water) Confirm Administered Dose 500 mls @ as directed .ROUTE .[facility]-MED ONE Stop: 10/14/19 03:39 Last Admin: 10/14/19 04:55 Dose: Not Given Sodium Chloride (Normal Saline) 500 mls @ 1,000 mls/hr IV .BOLUS ONE Stop: 10/14/19 04:14 Last Admin: 10/14/19 16:31 Dose: Not Given Sodium Chloride (Normal Saline) 1,000 mls @ 999 mls/hr IV ONETIME ONE Stop: 10/14/19 06:02 Last Admin: 10/14/19 06:03 Dose: 999 mls/hr Norepinephrine Bitartrate 4 mg (/ Dextrose/Water) 250 mls @ 75 mls/hr IV TITRATE [facility]; Protocol Last Titration: 10/14/19 19:42 Dose: 0 mcg/min, 0 mls/hr Levofloxacin/Dextrose 750 mg/ (Premix) 150 mls @ 100 mls/hr IV ONETIME STA Stop: 10/14/19 06:54 Last Admin: 10/14/19 06:48 Dose: 100 mls/hr Sodium Chloride (Normal Saline) 1,000 mls @ 150 mls/hr IV ASDIRECTED [facility] Last Admin: 10/14/19 07:32 Dose: 150 mls/hr Norepinephrine Bitartrate 4 mg (/ Dextrose/Water) 250 mls @ 56.25 mls/hr IV TITRATE [facility]; Protocol Last Titration: 10/14/19 15:05 Dose: Infused Dextrose/Sodium Chloride (Dextrose 5%-1/2 Ns) 1,000 mls @ 125 mls/hr IV ASDIRECTED [facility] Last Admin: 10/15/19 08:42 Dose: 125 mls/hr Magnesium Sulfate 2 gm/ Premix 50 mls @ 25 mls/hr IV ONETIME ONE Stop: 10/15/19 10:54 Last Admin: 10/15/19 10:30 Dose: 25 mls/hr Lidocaine HCl (Xylocaine 2% Jelly) Confirm Administered Dose 10 ml .ROUTE .STK- MED ONE Stop: 10/14/19 04:11 Last Admin: 10/14/19 04:27 Dose: 10 ml Lidocaine HCl (Xylocaine 2% Jelly) 10 ml MUCMEM ONETIME ONE Stop: 10/14/19 04:28 Last Admin: 10/14/19 16:32 Dose: Not Given Lidocaine HCl (Xylocaine 1%) 10 ml INJECT ONETIME ONE Stop: 10/14/19 09:42 Last Admin: 10/14/19 09:42 Dose: 10 ml Lidocaine HCl (Xylocaine 1%) Confirm Administered Dose 10 ml .ROUTE .STK-MED ONE Stop: 10/14/19 09:41 Last Admin: 10/14/19 16:32 Dose: Not Given Norepinephrine Bitartrate (Levophed) Confirm Administered Dose 4 mg .ROUTE .STK- MED ONE Stop: 10/14/19 03:10 Last Admin: 10/14/19 04:24 Dose: Not Given Norepinephrine Bitartrate (Levophed) Confirm Administered Dose 4 mg .ROUTE .STK- MED ONE Stop: 10/14/19 03:38 Last Admin: 10/14/19 04:57 Dose: Not Given Ondansetron HCl (Zofran Odt) 4 mg PO ONETIME ONE Stop: 10/14/19 02:53 Last Admin: 10/14/19 04:57 Dose: Not Given Ondansetron HCl (Zofran) 4 mg IVPUSH ONETIME ONE Stop: 10/14/19 02:56 Last Admin: 10/14/19 02:56 Dose: 4 mg Ondansetron HCl (Zofran) Confirm Administered Dose 4 mg .ROUTE .STK-MED ONE Stop: 10/14/19 02:54 Last Admin: 10/14/19 16:32 Dose: Not Given Pantoprazole Sodium (Protonix Iv) 80 mg IVPUSH BOLUS ONE Stop: 10/14/19 01:47 Last Admin: 10/14/19 02:00 Dose: 80 mg - Exam Quality Assessment: No: Supplemental Oxygen General: Alert, Oriented HEENT: Pupils Equal, Mucous Membr. Moist/[employer] Neck: Supple Lungs: Clear to Auscultation, Normal Respiratory Effort Cardiovascular: Regular Rate, Regular Rhythm GI/Abdominal Exam: Normal Bowel Sounds, Soft, Non-Tender, No Organomegaly, No Distention, No Abnormal Bruit, No Mass Extremities: Normal Inspection, Normal Range of Motion, Non-Tender, No Pedal Edema, Normal Capillary Refill Psy/Mental Status: Alert, Normal Affect, Normal Mood Sepsis Event Note - Evaluation Sepsis Screening Result: No Definite Risk - Focused Exam Vital Signs: Vital Signs Temp Pulse Resp BP BP Pulse Ox 10/15/19 12:00 97.7 F 88 16 142/91 H 96 10/15/19 09:35 97.9 F 84 19 142/80 H 134/80 90 L 10/15/19 04:00 97 F 17 114/73 97 Date Exam was Performed: 10/15/19 Time Exam was Performed: 19:06 - Problem List Review Problem List Initiated/Reviewed/Updated: Yes - My Orders Last 24 Hours: My Active Orders 10/14/19 15:24 Oxygen Therapy [RC] PRN Up With Assistance [RC] ASDIRECTED VTE/DVT Education [RC] Vital Signs [RC] Q4HR Ondansetron [Zofran] 4 mg IV Q4H PRN Resuscitation Status Routine 10/14/19 16:30 Folic Acid 1 mg IV DAILY Thiamine [Vitamin B-1] 100 mg IVPUSH DAILY 10/14/19 17:00 CIWAA Assessment [RC] Q1H 10/14/19 19:55 LORazepam [Ativan] See Protocol IVPUSH Q1H PRN 10/15/19 07:00 Levofloxacin/Dextrose 5%-Water [Levaquin in D5W 750 MG/150 ML] 750 mg Premix Bag 1 bag IV Q24H 10/15/19 09:00 D5 1/2 NS w/ 20 mEq/L KCl 1,000 ml IV ASDIRECTED 10/15/19 11:08 Patient Status [ADT] Routine Arterial Line Discontinue [OM.PC] Routine Central Line PICC Discontinue [OM.PC] Routine 10/15/19 Dinner Clear Liquid Diet [DIET] - Plan Plan:: Assessment Day of admission 29-year-old male found unresponsive by police in his vehicle with upper GI bleed , hypovolemia, hypotension requiring vasopressors * Patient drank a large amount of alcohol last night and took what he thought was on oxycodone. * Patient's urine drug screen was negative for oxycodone and opiates * It is possible patient was given another medication other than oxycodone that could be contributing to his hypotension * Patient is now awake and oriented but continues to require high doses of Levophed. * 3 L normal saline bolus given in ED +150 mL an hour. * Central line and art line placed in emergency department Upper GI bleed * Hematemesis in the emergency department * Initial hemoglobin 15.9, but likely spuriously elevated secondary to dehydration * Started on octreotide and Protonix drip * Dr. Bond was consulted by emergency department Acute alcohol intoxication * EtOH 0.11 Lactic acidosis * No source of infection, therefore no sepsis * Likely secondary to hypovolemia and alcohol * Resolved with IV fluids in the emergency room * Given levofloxacin in the emergency room * Blood cultures done in the emergency room Significant leukocytosis * WBC 33.45 with 0% bandemia * Afebrile * Negative chest x-ray * No source of infection * Likely demarcation secondary to stress Elevated LFTs with normal bilirubin * AST 601, ALT 620, Total bilirubin 0.3, albumin 3.7 * Likely secondary to acute alcohol intake Hypocalcemia * Calcium 7.8 * Likely secondary to acid base imbalance. * Unfortunately unable to get pH initially. * Differential includes parathyroid hormone disease, drugs, vitamin D deficiency , sepsis, acute respiratory alkalosis, acute severe illness as cause of hypocalcemia Day 1 * Off Levophed and normal blood pressure * Slight drop in hemoglobin this morning to 11.8 * Anion gap and lactic acidosis resolved with rehydration * Calcium corrected and a corrected calcium now is 8.78. * Liver enzymes improving: AST 848, ALT 974, albumin 2.9 Plan * Transferred to medical floor * DC Levophed to keep map above 65 * Recheck hemoglobin at noon * Advance diet to clear liquids if hemoglobin is stable * Recheck CMP, CBC, and magnesium in the morning * Continue Protonix drip until hemoglobin is stable for 12 to 24 hours * Stop IV fluids to D5 half-normal saline * CIWAA protocol with Ativan * Continue Levaquin until negative blood cultures at 48 hours * business services sales agent and case management consult * VTE prophylaxis not indicated * CODE STATUS: Full code * Length of stay likely 2 to 3 days.
[2019-10-16] MEDS: Pantoprazole 80 MG in Sodium Chloride 0.9% 100 ML IV SCH (03:12)
[2019-10-16] MEDS: Levofloxacin/Dextrose 5%-Water 750 MG in Premix Bag 1 BAG IV SCH (05:59)
[2019-10-16] MEDS ORDERED: Magnesium Sulfate/Water 4 GM in Premix Bag 1 BAG IV ONE (07:37)
[2019-10-16] MEDS: Thiamine 200 MG/2 ML MDV IVPUSH SCH (08:29)
[2019-10-16] MEDS: Folic Acid 50 MG/10 ML MDV IV SCH (08:30)
--- NOTE | 2019-10-16 10:25 | PCM.DCSUM1 ---
Discharge Summary - Hospital Course HPI Initial Comments: 29-year-old male who was found in his truck unresponsive this morning was brought to the emergency department. Patient had been drinking the night before with friends. He had been drinking [place] all day. His friend saw him sleeping in his running car around 2030 hrs. When he was still there in the morning they called the police. He was found to be unresponsive and they had to break the window to access him. They gave him 3 doses of intranasal Narcan with minimal improvement. EMS placed an IV and gave 2 additional milligrams of IV Narcan. When patient arrived in the emergency department he was tachycardic but otherwise hemodynamically stable and not hypothermic. He did not respond to noxious stimuli but his oxygen saturations were 97% on room air. Unfortunately secondary to shortage of ABG supplies due to COVID-19 the emergency department was unable to get an ABG. Patient then vomited a large amount of coffee-ground emesis in the emergency department and it tested grossly positive for Hemoccult. Patient was then treated like a variceal bleed and started on octreotide and pantoprazole. Patient was hypotensive and received IV fluids. NG tube was placed and no significant lele blood was found decreasing the likelihood of variceal bleeding. Blood pressure did come up while placing the NG tube, but he did drop again. He was given 3 L of saline and started on Levophed. His Levophed was titrated up to 20. Head CT was performed which was negative for acute intracranial process. WBC was 33.4 with 0% bandemia. Patient became more awake as the morning wore on. He was then able to give somewhat of a history and stated that he took a single 30 mg tablet of oxycodone to treat body aches. Patient states that it was his friends and his friend gave him the tablet. Urine drug screen was negative for oxycodone and opiates. Then it was decided to transfer the patient to the ICU for hypotension, alcohol abuse and intoxication, and lactic acidosis. Diagnosis: Stroke: No - Discharge Data Discharge Date: 10/16/19 Discharge Disposition: Home, Self-Care 01 Condition: Good - Referral to Home Health Primary Care Physician: PCP None - Discharge Diagnosis/Problem(s) (1) Upper GI bleed SNOMED Code(s): 03440920 ICD Code: K92.2 - GASTROINTESTINAL HEMORRHAGE, UNSPECIFIED Status: Acute Current Visit: Yes (2) Abnormal liver enzymes SNOMED Code(s): 369161613 ICD Code: R74.8 - ABNORMAL LEVELS OF OTHER SERUM ENZYMES Status: Acute Current Visit: Yes (3) Alcohol abuse SNOMED Code(s): 74221877 ICD Code: F10.10 - ALCOHOL ABUSE, UNCOMPLICATED Status: Acute Current Visit: Yes (4) Alcohol intoxication SNOMED Code(s): 96720893 ICD Code: F10.929 - ALCOHOL USE, UNSPECIFIED WITH INTOXICATION, UNSPECIFIED Status: Acute Current Visit: Yes - Patient Summary/Data Hospital Course: Day of admission 29-year-old male found unresponsive by police in his vehicle with upper GI bleed , hypovolemia, hypotension requiring vasopressors * Patient drank a large amount of alcohol last night and took what he thought was on oxycodone. * Patient's urine drug screen was negative for oxycodone and opiates * It is possible patient was given another medication other than oxycodone that could be contributing to his hypotension * Patient is now awake and oriented but continues to require high doses of Levophed. * 3 L normal saline bolus given in ED +150 mL an hour. * Central line and art line placed in emergency department Upper GI bleed * Hematemesis in the emergency department * Initial hemoglobin 15.9, but likely spuriously elevated secondary to dehydration * Started on octreotide and Protonix drip * Dr. Bond was consulted by emergency department Acute alcohol intoxication * EtOH 0.11 Lactic acidosis * No source of infection, therefore no sepsis * Likely secondary to hypovolemia and alcohol * Resolved with IV fluids in the emergency room * Given levofloxacin in the emergency room * Blood cultures done in the emergency room Significant leukocytosis * WBC 33.45 with 0% bandemia * Afebrile * Negative chest x-ray * No source of infection * Likely demarcation secondary to stress Elevated LFTs with normal bilirubin * AST 601, ALT 620, Total bilirubin 0.3, albumin 3.7 * Likely secondary to acute alcohol intake Hypocalcemia * Calcium 7.8 * Likely secondary to acid base imbalance. * Unfortunately unable to get pH initially. * Differential includes parathyroid hormone disease, drugs, vitamin D deficiency , sepsis, acute respiratory alkalosis, acute severe illness as cause of hypocalcemia Day 1 * Off Levophed and normal blood pressure * Slight drop in hemoglobin this morning to 11.8 * Anion gap and lactic acidosis resolved with rehydration * Calcium corrected and a corrected calcium now is 8.78. * Liver enzymes improving: AST 848, ALT 974, albumin 2.9 Day of discharge * Mild hypomagnesemia of 1.6. He was given IV supplementation and encouraged to improve his diet. * Liver enzymes continue to improve: AST 283, ALT 752 * Blood pressure now is mildly elevated. * Patient told to establish with primary care provider in the next 1 to 2 weeks and get a recheck of his liver enzymes and blood pressure. - Patient Instructions Diet: Regular Diet as Tolerated, No Alcoholic Beverages Driving: May Drive Today Showering/Bathing: May Shower Other/Special Instructions: You need to establish with a primary care provider. You should have follow-up of your liver function tests and blood pressure recheck within the next 1 to 2 weeks. - Discharge Plan *PRESCRIPTION DRUG MONITORING PROGRAM REVIEWED*: Not Applicable *COPY OF PRESCRIPTION DRUG MONITORING REPORT IN PATIENT GABRIEL: Not Applicable Prescriptions/Med Rec: Pantoprazole [ProTONIX] 40 mg PO BID #60 tab.cr Thiamine [Vitamin B-1] 100 mg PO BEDTIME #30 tab Home Medications: Home Meds Pantoprazole [ProTONIX] 40 mg PO BID #60 tab.cr 10/16/19 [Rx] Thiamine [Vitamin B-1] 100 mg PO BEDTIME #30 tab 10/16/19 [Rx] Patient Handouts: Smokeless Tobacco Information, Adult, Steps to Quit Smoking Referrals: PCP,None [Primary Care Provider] - - Discharge Summary/Plan Comment DC Time >30 min.: Yes Discharge Summary/Plan Comment: Discharged home in good condition. No alcohol. Establish with primary care provider. - General Info Date of Service: 10/16/19 Admission Dx/Problem (Free Text: Admission Diagnosis/Problem Admission Diagnosis/Problem Gastric hemorrhage Subjective Update: Patient states he is feeling well. Good appetite. No bowel movement. No more hematemesis. Functional Status: Reports: Pain Controlled - Review of Systems General: Reports: No Symptoms HEENT: Reports: No Symptoms Pulmonary: Reports: No Symptoms Cardiovascular: Reports: No Symptoms Gastrointestinal: Reports: No Symptoms Musculoskeletal: Reports: No Symptoms - Patient Data Vitals - Most Recent: Last Vital Signs Temp 98.0 F 10/16/19 08:00 Pulse 67 10/16/19 08:00 Resp 16 10/16/19 08:00 BP 151/89 H 10/16/19 08:00 Pulse Ox 97 10/16/19 08:00 Weight - Most Recent: 300 lb 1.6 oz I&O - Last 24 hours: Intake & Output 10/15/19 10/16/19 10/16/19 22:59 06:59 14:59 Intake Total 379 1080 Output Total 1770 Balance -1391 1080 Lab Results - Last 24 hrs: Laboratory Results - last 24 hr 10/15/19 10/16/19 10/16/19 Range/Units 12:00 06:20 06:20 WBC 13.46 H (4.23-9.07) K/mm3 RBC 4.42 L (4.63-6.08) M/mm3 Hgb 12.3 L 13.0 L (13.7-17.5) gm/dl Hct 39.5 L (40.1-51.0) % MCV 89.4 D (79.0-92.2) fl MCH 29.4 (25.7-32.2) pg MCHC 32.9 (32.2-35.5) g/dl RDW Std Deviation 40.9 (35.1-43.9) fL Plt Count 142 L (163-337) K/mm3 MPV 10.2 (9.4-12.3) fl Neut % (Auto) 71.3 H (34.0-67.9) % Lymph % (Auto) 18.0 L (21.8-53.1) % [place] % (Auto) 6.8 (5.3-12.2) % Eos % (Auto) 3.4 (0.8-7.0) Baso % (Auto) 0.2 (0.1-1.2) % Neut # (Auto) 9.59 H (1.78-5.38) K/mm3 Lymph # (Auto) 2.42 (1.32-3.57) K/mm3 [place] # (Auto) 0.92 H (0.30-0.82) K/mm3 Eos # (Auto) 0.46 (0.04-0.54) K/mm3 Baso # (Auto) 0.03 (0.01-0.08) K/mm3 Sodium 139 (136-145) mEq/L Potassium 3.7 (3.5-5.1) mEq/L Chloride 106 (98-107) mEq/L Carbon Dioxide 25 (21-32) mEq/L Anion Gap 11.7 (5-15) BUN 10 (7-18) mg/dL Creatinine 1.0 (0.7-1.3) mg/dL Est Cr Clr Drug Dosing 131.44 mL/min Estimated GFR (MDRD) > 60 (>60) mL/min BUN/Creatinine Ratio 10.0 L (14-18) Glucose 94 (74-106) mg/dL Calcium 8.3 L (8.5-10.1) mg/dL Magnesium 1.6 L (1.8-2.4) mg/dl Total Bilirubin 0.8 (0.2-1.0) mg/dL AST 283 H (15-37) U/L ALT 752 H (16-63) U/L Alkaline Phosphatase 58 (46-116) U/L Total Protein 6.2 L (6.4-8.2) g/dl Albumin 3.2 L (3.4-5.0) g/dl Globulin 3.0 gm/dL Albumin/Globulin Ratio 1.1 (1-2) MARYCRUZ Results - Last 24 hrs: Microbiology 10/14/19 06:05 Aerobic Blood Culture - Preliminary Blood - Venous NO GROWTH AFTER 2 DAYS Anaerobic Blood Culture - Final 10/14/19 06:25 Aerobic Blood Culture - Preliminary Blood - Venous - Lab Draw NO GROWTH AFTER 2 DAYS Anaerobic Blood Culture - Preliminary NO GROWTH AFTER 2 DAYS Med Orders - Current: Current Medications Folic Acid (Folic Acid) 1 mg IV DAILY [facility] Last Admin: 10/16/19 08:30 Dose: 1 mg Pantoprazole Sodium 80 mg/ (Sodium Chloride) 100 mls @ 10 mls/hr IV Q10H [facility] Last Admin: 10/16/19 03:12 Dose: 8 mg/hr, 10 mls/hr Levofloxacin/Dextrose 750 mg/ (Premix) 150 mls @ 100 mls/hr IV Q24H [facility] Last Admin: 10/16/19 05:59 Dose: 100 mls/hr Potassium Chloride/Dextrose/Sod Cl (D5 1/2 Ns W/ 20 Meq/L Kcl) 1,000 mls @ 125 mls/hr IV ASDIRECTED [facility] Last Admin: 10/15/19 10:36 Dose: 125 mls/hr Magnesium Sulfate 4 gm/ Premix 50 mls @ 12.5 mls/hr IV ONETIME ONE Stop: 10/16/19 11:36 Last Admin: 10/16/19 08:30 Dose: 12.5 mls/hr Lorazepam (Ativan) 0 mg IVPUSH Q1H PRN; Protocol PRN Reason: Withdrawal Symptoms Ondansetron HCl (Zofran) 4 mg IV Q4H PRN PRN Reason: Nausea/Vomiting Discontinued Medications Sodium Chloride (Normal Saline) 1,000 mls @ 150 mls/hr IV ASDIRECTED ASHISH Sodium Chloride (Normal Saline) 1,000 mls @ 999 mls/hr IV ONETIME ONE Stop: 10/14/19 02:52 Last Admin: 10/14/19 01:54 Dose: 999 mls/hr Octreotide Acetate 500 mcg/ (Sodium Chloride) 500 mls @ 50 mls/hr IV Q10H A[facility] Last Admin: 10/14/19 20:16 Dose: Not Given Sodium Chloride (Normal Saline) 500 mls @ 999 mls/hr IV .BOLUS ONE Stop: 10/14/19 03:31 Last Admin: 10/14/19 03:06 Dose: 999 mls/hr Norepinephrine Bitartrate 4 mg (/ Dextrose/Water) 250 mls @ 37.5 mls/hr IV TITRATE ASHISH; Protocol Last Admin: 10/14/19 04:56 Dose: 10 mcg/min, 37.5 mls/hr Sodium Chloride (Normal Saline) Confirm Administered Dose 100 mls @ as directed .ROUTE .STK-MED ONE Stop: 10/14/19 03:10 Last Admin: 10/14/19 04:23 Dose: Not Given Sodium Chloride (Normal Saline) Confirm Administered Dose 250 mls @ as directed .ROUTE .STK-MED ONE Stop: 10/14/19 03:13 Last Admin: 10/14/19 04:56 Dose: Not Given Dextrose/Water (Dextrose 5% In Water) Confirm Administered Dose 500 mls @ as directed .ROUTE .STK-MED ONE Stop: 10/14/19 03:39 Last Admin: 10/14/19 04:55 Dose: Not Given Sodium Chloride (Normal Saline) 500 mls @ 1,000 mls/hr IV .BOLUS ONE Stop: 10/14/19 04:14 Last Admin: 10/14/19 16:31 Dose: Not Given Sodium Chloride (Normal Saline) 1,000 mls @ 999 mls/hr IV ONETIME ONE Stop: 10/14/19 06:02 Last Admin: 10/14/19 06:03 Dose: 999 mls/hr Norepinephrine Bitartrate 4 mg (/ Dextrose/Water) 250 mls @ 75 mls/hr IV TITRATE ASHISH; Protocol Last Titration: 10/14/19 19:42 Dose: 0 mcg/min, 0 mls/hr Levofloxacin/Dextrose 750 mg/ (Premix) 150 mls @ 100 mls/hr IV ONETIME STA Stop: 10/14/19 06:54 Last Admin: 10/14/19 06:48 Dose: 100 mls/hr Sodium Chloride (Normal Saline) 1,000 mls @ 150 mls/hr IV ASDIRECTED ASHISH Last Admin: 10/14/19 07:32 Dose: 150 mls/hr Norepinephrine Bitartrate 4 mg (/ Dextrose/Water) 250 mls @ 56.25 mls/hr IV TITRATE ASHISH; Protocol Last Titration: 10/14/19 15:05 Dose: Infused Dextrose/Sodium Chloride (Dextrose 5%-1/2 Ns) 1,000 mls @ 125 mls/hr IV ASDIRECTED ASHISH Last Admin: 10/15/19 08:42 Dose: 125 mls/hr Magnesium Sulfate 2 gm/ Premix 50 mls @ 25 mls/hr IV ONETIME ONE Stop: 10/15/19 10:54 Last Admin: 10/15/19 10:30 Dose: 25 mls/hr Lidocaine HCl (Xylocaine 2% Jelly) Confirm Administered Dose 10 ml .ROUTE .STK- MED ONE Stop: 10/14/19 04:11 Last Admin: 10/14/19 04:27 Dose: 10 ml Lidocaine HCl (Xylocaine 2% Jelly) 10 ml MUCMEM ONETIME ONE Stop: 10/14/19 04:28 Last Admin: 10/14/19 16:32 Dose: Not Given Lidocaine HCl (Xylocaine 1%) 10 ml INJECT ONETIME ONE Stop: 10/14/19 09:42 Last Admin: 10/14/19 09:42 Dose: 10 ml Lidocaine HCl (Xylocaine 1%) Confirm Administered Dose 10 ml .ROUTE .STK-MED ONE Stop: 10/14/19 09:41 Last Admin: 10/14/19 16:32 Dose: Not Given Norepinephrine Bitartrate (Levophed) Confirm Administered Dose 4 mg .ROUTE .STK- MED ONE Stop: 10/14/19 03:10 Last Admin: 10/14/19 04:24 Dose: Not Given Norepinephrine Bitartrate (Levophed) Confirm Administered Dose 4 mg .ROUTE .STK- MED ONE Stop: 10/14/19 03:38 Last Admin: 10/14/19 04:57 Dose: Not Given Ondansetron HCl (Zofran Odt) 4 mg PO ONETIME ONE Stop: 10/14/19 02:53 Last Admin: 10/14/19 04:57 Dose: Not Given Ondansetron HCl (Zofran) 4 mg IVPUSH ONETIME ONE Stop: 10/14/19 02:56 Last Admin: 10/14/19 02:56 Dose: 4 mg Ondansetron HCl (Zofran) Confirm Administered Dose 4 mg .ROUTE .STK-MED ONE Stop: 10/14/19 02:54 Last Admin: 10/14/19 16:32 Dose: Not Given Pantoprazole Sodium (Protonix Iv) 80 mg IVPUSH BOLUS ONE Stop: 10/14/19 01:47 Last Admin: 10/14/19 02:00 Dose: 80 mg Thiamine HCl (Vitamin B-1) 100 mg IVPUSH DAILY ASHISH Stop: 10/16/19 09:01 Last Admin: 10/16/19 08:29 Dose: 100 mg - Exam General: Reports: Alert, Oriented HEENT: Reports: Pupils Equal, Mucous Membr. Moist/[place] Neck: Reports: Supple Lungs: Reports: Clear to Auscultation, Normal Respiratory Effort Cardiovascular: Reports: Regular Rate, Regular Rhythm GI/Abdominal Exam: Normal Bowel Sounds, Soft, Non-Tender, No Organomegaly, No Distention, No Abnormal Bruit, No Mass Extremities: Normal Inspection, Normal Range of Motion, Non-Tender, No Pedal Edema, Normal Capillary Refill Skin: Reports: Warm, Dry, Intact Psy/Mental Status: Reports: Alert, Normal Affect, Normal Mood
== END 2019-10-16 11:00 | disposition home or self-care (01) | DRG 253 ==
LOC: JD.ED 01:09 → JD.ICU 14:30
PROVIDERS: ADMIT Family Medicine; ATTEND Family Medicine
PROC: 3E033XZ Introduction of Vasopressor into Peripheral Vein, Percutaneous Approach (ICD-10-PCS; principal; 2019-10-14)
PROC: 02HV33Z Insertion of Infusion Device into Superior Vena Cava, Percutaneous Approach (ICD-10-PCS; 2019-10-14)
PROC: 03HB33Z Insertion of Infusion Device into Right Radial Artery, Percutaneous Approach (ICD-10-PCS; 2019-10-14)
PROC: 4A133B1 Monitoring of Arterial Pressure, Peripheral, Percutaneous Approach (ICD-10-PCS; 2019-10-14)
PROC: 4A133J1 Monitoring of Arterial Pulse, Peripheral, Percutaneous Approach (ICD-10-PCS; 2019-10-14)
DX: K92.2 Gastrointestinal hemorrhage, unspecified (principal); I95.9 Hypotension, unspecified; F10.129 Alcohol abuse with intoxication, unspecified; E87.2 Acidosis; R74.8 Abnormal levels of other serum enzymes; E86.1 Hypovolemia; E83.51 Hypocalcemia; E83.42 Hypomagnesemia; E66.9 Obesity, unspecified; Y90.5 Blood alcohol level of 100-119 mg/100 ml; Z68.37 Body mass index [BMI] 37.0-37.9, adult
CPT/HCPCS: 36415; 36556; 70450; 70450-26; 80053; 80306; 80307; 83605; 83735; 83930; 84443; 85007; 85014; 85018; 85025; 85027; 85610; 85730; 87040; 93005; 93010; 99284; 99285-25; C9113; J1956; J2001; J2354-GY; J2405; J3411; J3475; J3480; J7030; J7040; J7042; J7050; J7060

== ENCOUNTER 2019-10-31 19:22 | Emergency (ER) | payer BC ==
[2019-10-31] MEDS ORDERED: Sodium Chloride 0.9% 10 ML Syringe FLUSH PRN (19:25)
[2019-10-31] MEDS ORDERED: Sodium Chloride 0.9% 1,000 ML IV SCH (19:30)
[2019-10-31] MEDS ORDERED: Ondansetron 4 MG/2 ML SDV IVPUSH ONE (19:37)
--- NOTE | 2019-10-31 19:40 | EDM.PDOC ---
ED HPI GENERAL MEDICAL PROBLEM - General Chief Complaint: General Stated Complaint: [facility] Time Seen by Provider: 10/31/19 19:25 Source of Information: Reports: Patient, EMS History Limitations: Reports: No Limitations - History of Present Illness INITIAL COMMENTS - FREE TEXT/NARRATIVE: The patient presents by [facility] for an suspected overdose. He was found unresponsive and CPR was done until police and EMS arrived. He was given 4mg of Narcan intranasal by police and then 4mg of Narcan IV by EMS. He was also ventilated. He came to. He arrives sleepy. He admits to drinking 12 beers today but denies any drug use illegal or prescribed. He is orientated x 3. He did vomit some dark emesis when he arrived. He has some chest pain but he is not short of breath. He has no abdominal pain. Onset: Sudden Duration: Minutes: Quality: Reports: Sharp Severity: Mild Improves with: Reports: None Worsens with: Reports: None Associated Symptoms: Reports: Chest Pain, Nausea/Vomiting. Denies: Cough, Fever /Chills, Headaches, Shortness of Breath - Related Data Allergies Allergy/AdvReac Type Severity Reaction Status Date / Time No Known Allergies Allergy Verified 10/31/19 19:35 Home Meds: Home Meds . [No Known Home Meds] 10/31/19 [History] Past Medical History - Past Health History Medical/Surgical History: Denies Medical/Surgical History Endocrine/Metabolic History: Reports: Obesity/BMI 30+ - Infectious Disease History Infectious Disease History: Reports: None - Past Surgical History Endocrine Surgical History: Reports: None Social & Family History - Family History Family Medical History: Unobtainable - Caffeine Use Caffeine Use: Reports: Coffee, Soda ED ROS GENERAL - Review of Systems Review Of Systems: See Below Constitutional: Reports: No Symptoms HEENT: Reports: No Symptoms Respiratory: Reports: No Symptoms Cardiovascular: Reports: Chest Pain Endocrine: Reports: No Symptoms GI/Abdominal: Reports: Nausea, Vomiting. Denies: Abdominal Pain : Reports: No Symptoms Musculoskeletal: Reports: No Symptoms ED EXAM, GENERAL - Physical Exam Exam: See Below Exam Limited By: No Limitations General Appearance: Alert, No Apparent Distress Ears: Normal External Exam Nose: Normal Inspection Head: Atraumatic, Normocephalic Neck: Normal Inspection Respiratory/Chest: No Respiratory Distress, Lungs Clear, Normal Breath Sounds Cardiovascular: Regular Rate, Rhythm, No Edema, No Murmur, Other (Mild erythema to the mid sternum) GI/Abdominal: Soft, Non-Tender, No Organomegaly, No Mass Back Exam: Normal Inspection Extremities: Normal Inspection Course - Vital Signs Last Recorded V/S: Last Vital Signs Temp 97.7 F 10/31/19 19:28 Pulse 122 H 10/31/19 19:28 Resp 16 10/31/19 19:28 BP 132/68 10/31/19 19:28 Pulse Ox 93 L 10/31/19 19:28 - Orders/Labs/Meds Orders: Active Orders 24 hr Category Date Time Status Cardiac Monitoring [RC] . DIRECTED Care 10/31/19 19:25 Active EKG Documentation Completion [RC] STAT Care 10/31/19 19:25 Active Peripheral IV Care [RC] . DIRECTED Care 10/31/19 19:26 Active ETOH [ETHANOL BLOOD MEDICAL] [CHEM] Stat Lab 10/31/19 23:09 Ordered Proparacaine [Proparacaine 0.5% Ophth Soln] Med 10/31/19 22:00 Active 1 ml EYERT ASDIRECTED Sodium Chloride 0.9% [Normal Saline] 1,000 ml Med 10/31/19 19:30 Active IV .BOLUS Sodium Chloride 0.9% [Saline Flush] Med 10/31/19 19:25 Active 10 ml FLUSH ASDIRECTED PRN Peripheral IV Insertion Adult [OM.PC] Stat Oth 10/31/19 19:25 Ordered Medication Orders Sodium Chloride (Normal Saline) 1,000 mls @ 1,000 mls/hr IV .BOLUS ASIHSH Last Admin: 10/31/19 19:45 Dose: 1,000 mls/hr Proparacaine HCl (Proparacaine 0.5% Ophth Soln) 1 ml EYERT ASDIRECTED ASHISH Last Admin: 10/31/19 23:06 Dose: 2 drop Sodium Chloride (Saline Flush) 10 ml FLUSH ASDIRECTED PRN PRN Reason: Keep Vein Open Labs: Laboratory Tests 10/31/19 10/31/19 10/31/19 Range/Units 19:40 19:40 22:20 WBC 14.63 H (4.23-9.07) K/mm3 RBC 5.44 (4.63-6.08) M/mm3 Hgb 16.0 D (13.7-17.5) gm/dl Hct 47.4 (40.1-51.0) % MCV 87.1 (79.0-92.2) fl MCH 29.4 (25.7-32.2) pg MCHC 33.8 (32.2-35.5) g/dl RDW Std Deviation 41.9 (35.1-43.9) fL Plt Count 301 D (163-337) K/mm3 MPV 9.8 (9.4-12.3) fl Neut % (Auto) 57.6 (34.0-67.9) % Lymph % (Auto) 31.0 (21.8-53.1) % [place] % (Auto) 5.0 L (5.3-12.2) % Eos % (Auto) 5.0 (0.8-7.0) Baso % (Auto) 0.5 (0.1-1.2) % Neut # (Auto) 8.42 H (1.78-5.38) K/mm3 Lymph # (Auto) 4.54 H (1.32-3.57) K/mm3 [place] # (Auto) 0.73 (0.30-0.82) K/mm3 Eos # (Auto) 0.73 H (0.04-0.54) K/mm3 Baso # (Auto) 0.08 (0.01-0.08) K/mm3 Manual Slide Review Normal smear Sodium 139 (136-145) mEq/L Potassium 3.4 L (3.5-5.1) mEq/L Chloride 103 (98-107) mEq/L Carbon Dioxide 21 (21-32) mEq/L Anion Gap 18.4 H (5-15) BUN 9 (7-18) mg/dL Creatinine 1.0 (0.7-1.3) mg/dL Est Cr Clr Drug Dosing 127.87 mL/min Estimated GFR (MDRD) > 60 (>60) mL/min BUN/Creatinine Ratio 9.0 L (14-18) Glucose 111 H (74-106) mg/dL Calcium 8.3 L (8.5-10.1) mg/dL Total Bilirubin 0.2 (0.2-1.0) mg/dL AST 29 (15-37) U/L ALT 55 (16-63) U/L Alkaline Phosphatase 61 (46-116) U/L Troponin I < 0.017 (0.00-0.056) ng/mL Total Protein 7.3 (6.4-8.2) g/dl Albumin 3.9 (3.4-5.0) g/dl Globulin 3.4 gm/dL Albumin/Globulin Ratio 1.2 (1-2) Urine Opiates Screen Negative (BIBQBM=702) Ur Buprenorphine Scrn Negative (CUTOFF=10) Ur Oxycodone Screen Negative (OEX6HQ=298) Urine Methadone Screen Negative (XKB5YJ=387) Ur Propoxyphene Screen Negative (PLEBID=198) Ur Barbiturates Screen Negative (BETZRN=397) Ur Tricyclics Screen Negative (KCLKTY=401) Ur Phencyclidine Scrn Negative (CUTOFF=25) Ur Amphetamine Screen Negative (DPEEAO=680) U Methamphetamines Scrn Negative (MLTPEH=293) U Benzodiazepines Scrn Negative (USGJZE=259) U Cocaine Metab Screen Negative (JUQFFZ=453) U Marijuana (THC) Screen Negative (CUTOFF=50) Meds: Medications Generic Name Dose Route Start Last Admin Trade Name Freq PRN Reason Stop Dose Admin Sodium Chloride 1,000 mls @ 1,000 mls/hr 10/31/19 19:30 10/31/19 19:45 Normal Saline IV 1,000 mls/hr .BOLUS ASHISH Administration Proparacaine HCl 1 ml 10/31/19 22:00 10/31/19 23:06 Proparacaine 0.5% Ophth Soln EYERT 2 drop ASDIRECTED ASHISH Administration Sodium Chloride 10 ml 10/31/19 19:25 Saline Flush FLUSH ASDIRECTED PRN Keep Vein Open Discontinued Medications Generic Name Dose Route Start Last Admin Trade Name Freq PRN Reason Stop Dose Admin Fluorescein Sodium 1 mg 10/31/19 21:53 10/31/19 23:06 Ful-Jessika EYERT 10/31/19 21:54 1 mg ONETIME ONE Administration Ondansetron HCl 4 mg 10/31/19 19:37 10/31/19 19:45 Zofran IVPUSH 10/31/19 19:38 4 mg ONETIME ONE Administration - Re-Assessments/Exams Free Text/Narrative Re-Assessment/Exam: 10/31/19 19:43 I ordered an IV NS 1L bolus, zofran 4mg IV, labs, EKG, CXR, and urine drug screen. 10/31/19 23:09 His CXR looks good. His EKG shows a sinus tachycardia with no acute changes. His WBC was elevated at 14.63. His K was low at 3.4. His anion gap was elevated at 18.4. His troponin is negative. His drug screen came back negative. He has not been taking anything else like Kratum. I am not sure why he stopped breathing. It does appear to be an overdose but I am not sure of what. He was complaining of his right eye hurting. I put some proparicaine in it and fluress and he has a corneal abrasion. I will get him on some cipro drops. 10/31/19 23:15 Departure - Departure Time of Disposition: 23:15 Disposition: Home, Self-Care 01 Condition: Good Clinical Impression: Alcohol intoxication Qualifiers: Complication of substance-induced condition: uncomplicated Qualified Code(s): F10.920 - Alcohol use, unspecified with intoxication, uncomplicated Accidental overdose Qualifiers: Encounter type: initial encounter Qualified Code(s): T50.901A - Poisoning by unspecified drugs, medicaments and biological substances, accidental ( unintentional), initial encounter - Discharge Information *PRESCRIPTION DRUG MONITORING PROGRAM REVIEWED*: Not Applicable *COPY OF PRESCRIPTION DRUG MONITORING REPORT IN PATIENT GABRIEL: Not Applicable Referrals: PCP,None [Primary Care Provider] - Erica Loomis PA-C [Physician Mortgage Cl[employer]] - 1 Week Forms: ED Department Discharge Additional Instructions: Use the cipro drops 1 drop in the right eye every 4 hours while awake. Drink plenty of fluids. Take tylenol or motrin for any pain. Please return if you are worse. Sepsis Event Note - Evaluation Sepsis Screening Result: No Definite Risk - Focused Exam Vital Signs: Vital Signs Temp Pulse Resp BP Pulse Ox 10/31/19 19:28 97.7 F 122 H 16 132/68 93 L Date Exam was Performed: 10/31/19 Time Exam was Performed: 23:09 - My Orders Last 24 Hours: My Active Orders 10/31/19 19:25 Cardiac Monitoring [RC] . DIRECTED EKG Documentation Completion [RC] STAT Sodium Chloride 0.9% [Saline Flush] 10 ml FLUSH ASDIRECTED PRN Peripheral IV Insertion Adult [OM.PC] Stat 10/31/19 19:26 Peripheral IV Care [RC] . DIRECTED 10/31/19 19:30 Sodium Chloride 0.9% [Normal Saline] 1,000 ml IV .BOLUS 10/31/19 22:00 Proparacaine [Proparacaine 0.5% Ophth Soln] 1 ml EYERT ASDIRECTED 10/31/19 23:09 ETOH [ETHANOL BLOOD MEDICAL] [CHEM] Stat - Assessment/Plan Last 24 Hours: My Active Orders 10/31/19 19:25 Cardiac Monitoring [RC] . DIRECTED EKG Documentation Completion [RC] STAT Sodium Chloride 0.9% [Saline Flush] 10 ml FLUSH ASDIRECTED PRN Peripheral IV Insertion Adult [OM.PC] Stat 10/31/19 19:26 Peripheral IV Care [RC] . DIRECTED 10/31/19 19:30 Sodium Chloride 0.9% [Normal Saline] 1,000 ml IV .BOLUS 10/31/19 22:00 Proparacaine [Proparacaine 0.5% Ophth Soln] 1 ml EYERT ASDIRECTED 10/31/19 23:09 ETOH [ETHANOL BLOOD MEDICAL] [CHEM] Stat
--- NOTE | 2019-10-31 20:20 | CR ---
Chest: Portable view of the chest was obtained. Comparison: Previous chest x-ray of 10/14/19. Heart size and mediastinum are normal. Lungs are clear with no acute parenchymal change. Minimal scoliosis is noted within the spine possibly positional. No acute bony abnormality is appreciated. Impression: 1. Nothing acute is appreciated on portable chest x-ray. Diagnostic code #1 This report was dictated in MDT
[2019-10-31] MEDS ORDERED: Fluorescein 1 MG Ophth Strip EYERT ONE (21:53)
[2019-10-31] MEDS ORDERED: Proparacaine 0.5% Ophth Soln 15 ML Bottle EYERT SCH (22:00)
[2019-10-31] MEDS ORDERED: Ciprofloxacin 0.3% Ophth Soln 5 ML Bottle EYERT SCH (23:15)
== END 2019-10-31 23:37 | disposition home or self-care (01) ==
LOC: JD.ED 19:22
DX: T50.901A Poisoning by unspecified drugs, medicaments and biological substances, accidental (unintentional), initial encounter (principal); F10.120 Alcohol abuse with intoxication, uncomplicated; L53.9 Erythematous condition, unspecified; E66.9 Obesity, unspecified; Z68.38 Body mass index [BMI] 38.0-38.9, adult
CPT/HCPCS: 36415; 71045; 80053; 80306; 80307; 84484; 85025; 93005; 96361; 96374; 99285; A9270; J2405; J7030; 99284